=== PATIENT | female | born 1970 | race Caucasian/White ===

== ENCOUNTER 2018-07-22 12:44 | Outpatient (CLI) | payer MEDICAID, SELFPAY ==
--- NOTE | 2018-07-22 12:48 | DI.RAD_ITS ---
SYMPTOM/DIAGNOSIS: BACK KPAIN M54.16 LUMBOSACRAL SPINE: 07/22 Five views were obtained. There is narrowing of the intervertebral disc space at L4-5 with end plate and facet hypertrophic changes also noted at this level. Otherwise, the intervertebral disc spaces are well maintained. Slight hypertrophic degenerative changes noted in facet joints at L5-S1 and L3- 4. CONCLUSION: DJD and disc degeneration at L4-5. Question prior L4-5 laminectomy.
--- NOTE | 2018-07-22 12:48 | DI.RAD_ITS ---
SYMPTOM/DIAGNOSIS: NECK PAIN, M54.2 CERVICAL SPINE: 07/22 The bony structures are normally mineralized. Seven cervical vertebral bodies are clearly demonstrated and appear intact. The disc spaces are well maintained. The posterior elements, neural canal, neuroforamina, facet joints, odontoid and prevertebral soft tissues appear normal. CONCLUSION: Normal cervical spine.
[2018-07-22 14:01] LABS: Hemoglobin A1C 6.7 % (4.5-6.2)
[2018-07-22 14:32] LABS: Anion Gap 11.7 mmol/L (3-11); BUN 17 mg/dL (7-18); CO2 24.3 mmol/L (21.0-32.0); CREATININE 0.74 mg/dL (0.55-1.02); Calcium 8.6 mg/dL (8.5-10.1); Chloride 102 mmol/L (98-107); Cholesterol 196 mg/dL (50-200); Glucose 169 mg/dL (70-100); HDL Cholesterol 71 mg/dL (40-60); LDL CHOLESTEROL 114 mg/dL (<100); Potassium 3.4 mmol/L (3.5-5.1); Sodium 138 mmol/L (136-145); Triglyceride 115 mg/dL (30-150)
== END 2018-07-22 13:04 ==
PROVIDERS: PCP Family Medicine; Visit Provider Family Medicine
DX: M54.2 Cervicalgia (principal); M54.16 Radiculopathy, lumbar region; M51.16 Intervertebral disc disorders with radiculopathy, lumbar region; E11.9 Type 2 diabetes mellitus without complications
CPT/HCPCS: 36415; 80048; 80061; 83721; 72050; 72110; 83036

== ENCOUNTER 2018-10-23 00:08 | Outpatient (CLI) | payer MEDICAID, SELFPAY ==
--- NOTE | 2018-10-23 14:30 | DI.MRI_ITS ---
SYMPTOMS/DIAGNOSIS: BACK PAIN, LUMBAR RADICULOPATHY, M54.16 MRI OF THE LUMBAR SPINE: Comparison is made with plain films dated July,. T1, T2 and STIR sagittal and T1 and T2 axial sequences were performed. Laminectomy defects are seen at L4 and L5. The T10-11 through L2-3 discs appear intact. At L3-4, there is mild concentric disc bulging and a small focal central disc protrusion. There is some impression on the anterior thecal sac. There is overall mild central canal stenosis. No neural foraminal narrowing is seen. At L4-5, there is marked loss of disc height. There are circumferentially projecting osteophytes. There is a small left paracentral disc protrusion, in the same location as on the previous exam of 2007. This appears somewhat less prominent. There is mild to moderate left neural foraminal narrowing. There is lateral recess narrowing. The L5-S1 disc appears intact. There are mild facet degenerative changes at L5- S1 causing right neural foraminal narrowing. IMPRESSION: 1. Central disc protrusion at L3-4 causing mild central canal stenosis. The findings are not significantly changed from 2008. 2. Prior surgery at the L4-5 level. There is a left paracentral disc protrusion versus scarring, which appears less prominent when compared with the previous exam.
== END 2018-10-23 00:28 ==
PROVIDERS: PCP Family Medicine; Visit Provider Family Medicine
DX: M54.16 Radiculopathy, lumbar region (principal); M51.16 Intervertebral disc disorders with radiculopathy, lumbar region; M48.061 Spinal stenosis, lumbar region without neurogenic claudication
CPT/HCPCS: 72148

== ENCOUNTER 2019-01-03 08:37 | Outpatient (CLI) | payer MEDICAID, SELFPAY ==
[2019-01-03 14:56] LABS: COMMENT (LAB VIEW ONLY) 132.94 mg/dL; Microalb ug/mg Crea 6.6 ug/mg Cr
[2019-01-03 15:17] LABS: Anion Gap 12.4 mmol/L (3-11); BUN 11 mg/dL (7-18); CO2 22.6 mmol/L (21.0-32.0); Chloride 103 mmol/L (98-107); Cholesterol 170 mg/dL (50-200); Glucose 179 mg/dL (70-100); HDL Cholesterol 57 mg/dL (40-60); LDL CHOLESTEROL 97 mg/dL (<100); Potassium 3.7 mmol/L (3.5-5.1); Sodium 138 mmol/L (136-145); Triglyceride 122 mg/dL (30-150)
== END 2019-01-03 08:57 ==
PROVIDERS: PCP Family Medicine; Visit Provider Family Medicine
DX: E11.9 Type 2 diabetes mellitus without complications (principal); E78.5 Hyperlipidemia, unspecified
CPT/HCPCS: 36415; 80048; 80061; 83721; 82043; 82570; 83036

== ENCOUNTER 2019-02-19 11:55 | Outpatient (REF) | payer MEDICAID, SELFPAY ==
--- NOTE | 2019-02-19 12:15 | PAPFT_PTH ---
PATIENT: Cristina Guajardo LOC: [facility] U#:[id number] AGE/SX: 48/F ROOM: RE02/19/[address]: Laura Vaca MD : 1970 BED: DIS: 02/19/2019 SPEC #: [id number] RECD: 02/20/19 12:59 STATUS: MIGDALIA RELaura #: [id number] DANIEL: 02/19/19 12:[address]: Laura Vaca DEPT: [facility] Cytology RECD BY: Katharine Villanueva Tissues: 1 - CX/ENDOCX FOR PAP SMEARS Procedures: PAP THIN PREP/UVM Screening HPV DNA PROBE Comments: [id number]
== END 2019-02-19 12:15 ==
LOC: LBN 11:55
PROVIDERS: PCP Family Medicine; Visit Provider Family Medicine
DX: Z12.4 Encounter for screening for malignant neoplasm of cervix (principal); Z11.51 Encounter for screening for human papillomavirus (HPV)
CPT/HCPCS: 88142; 87624

== ENCOUNTER 2019-05-07 11:54 | Outpatient (CLI) | payer MEDICAID, SELFPAY ==
[2019-05-07 12:36] LABS: Abs Immature Grans 0.03 k/cumm (0.0-0.09); Absolute Eosinophil Count 0.11 k/cumm (0.0-0.7); Absolute Lymphocyte Count 2.38 k/cumm (1.2-3.4); Absolute Monocyte Count 0.62 k/cumm (0.11-0.7); Absolute Neutrophil Count 8.53 k/cumm (1.2-6.7); Basophils % 0.3; Eosinophils % 0.9; HCT 39.8 % (36.0-46.0); HGB 13.8 g/dL (12.0-15.5); Immature Grans % 0.3; Lymphocytes % 20.3; Mean Corp. HGB Concentration 34.7 g/dL (32.0-36.0); Mean Corpuscular Hemoglobin 31.8 pg (27.0-33.0); Mean Corpuscular Volume 91.7 fL (80-95); Mean Platelet Volume 9.8 fL (8.0-11.0); Monocytes % 5.3; Neutrophils % 72.9; Platelet Count 266 x1000/uL (130-400); RBC 4.34 m/cumm (4.00-5.20); RBC Distribution Width 12.5 % (11.7-14.6)
[2019-05-07 12:43] LABS: Absolute Basophil Count 0.04 k/cumm (0.0-0.2)
[2019-05-07 13:02] LABS: ALT 26 U/L (12-78); AST 9 U/L (15-37); Albumin 3.9 g/dL (3.4-5.0); Alkaline Phosphatase 74 U/L (46-116); Anion Gap 13.2 mmol/L (3-11); BUN 15 mg/dL (7-18); Bilirubin, Total 0.6 mg/dL (0.2-1.0); CO2 23.8 mmol/L (21.0-32.0); CREATININE 0.69 mg/dL (0.55-1.02); Calcium 9.6 mg/dL (8.5-10.1); Chloride 102 mmol/L (98-107); Glucose 163 mg/dL (70-100); Potassium 3.7 mmol/L (3.5-5.1); Sodium 139 mmol/L (136-145)
== END 2019-05-07 12:14 ==
PROVIDERS: PCP Family Medicine; Visit Provider Family Medicine
DX: R10.9 Unspecified abdominal pain (principal)
CPT/HCPCS: 36415; 80053; 85025

== ENCOUNTER 2019-05-13 00:33 | Outpatient (CLI) | payer MEDICAID, SELFPAY ==
--- NOTE | 2019-05-13 08:33 | DI.US_ITS ---
SYMPTOMS/DIAGNOSIS: ABDOMINAL PAIN, R10.9 ABDOMINAL ULTRASOUND: Routine examination was performed. The aorta is unremarkable, as is the inferior vena cava. The liver measures 19 cm in length. No hepatic mass is seen. The gallbladder is unremarkable. The common duct is within normal limits at 0.3 cm. The pancreas, kidneys and spleen have a normal appearance. The anterior abdominal wall was evaluated in the area of palpable concern. No evidence of an anterior abdominal wall hernia is present. IMPRESSION: Unremarkable abdominal ultrasound.
== END 2019-05-13 00:53 ==
PROVIDERS: PCP Family Medicine; Visit Provider Family Medicine
DX: R10.9 Unspecified abdominal pain (principal)
CPT/HCPCS: 76700

== ENCOUNTER 2019-07-14 19:20 | Outpatient (REF) | payer MEDICAID, SELFPAY | END 2019-07-14 19:40 | LOC: LBN 19:20 | PROVIDERS: PCP Family Medicine; Visit Provider Family Medicine | DX: N39.0 Urinary tract infection, site not specified (principal); E11.9 Type 2 diabetes mellitus without complications | CPT/HCPCS: 87077; 87086; 87186 ==

== ENCOUNTER 2019-12-15 09:17 | Outpatient (CLI) | payer MEDICAID, SELFPAY ==
[2019-12-15 10:24] LABS: ALT 20 U/L (14-59); AST 7 U/L (15-37); Albumin 3.7 g/dL (3.4-5.0); Alkaline Phosphatase 61 U/L (46-116); Anion Gap 8.8 mmol/L (3-11); BUN 13 mg/dL (7-18); Bilirubin, Total 0.4 mg/dL (0.2-1.0); CO2 27.2 mmol/L (21.0-32.0); CREATININE 0.51 mg/dL (0.55-1.02); Calculated LDL 97 mg/dL (<100); Chloride 105 mmol/L (98-107); Cholesterol 166 mg/dL (<200); Glucose 166 mg/dL (74-106); HDL Cholesterol 55 mg/dL (40-60); Potassium 4.6 mmol/L (3.5-5.1); Sodium 141 mmol/L (136-145); Total Protein 6.7 g/dL (6.4-8.2); Triglyceride 70 mg/dL (<150)
== END 2019-12-15 09:37 ==
PROVIDERS: PCP Family Medicine; Visit Provider Family Medicine
DX: E11.9 Type 2 diabetes mellitus without complications (principal)
CPT/HCPCS: 36415; 80053; 80061; 83036

== ENCOUNTER 2020-01-24 03:40 | Emergency (ER) | payer MEDICAID, SELFPAY ==
[2020-01-24 03:45] VITALS: BP 166/85; PULSE 121; RESP 16; TEMP 36.8; O2SAT 99
--- NOTE | 2020-01-24 03:45 | DI.CT_ITS ---
EXAM: CT RENAL COLIC WO CLINICAL HISTORY: right flank pain. TECHNIQUE: Imaging Protocol: Axial computed tomography images with coronal and sagittal reformatted images were created and reviewed. COMPARISON: No exams were available for comparison FINDINGS: ABDOMEN: Lung Bases: Normal where visualized. Liver: Normal density. No measurable mass. Gallbladder and biliary tract: No radiodense calculus or biliary ductal dilation. Pancreas: Normal density, no abnormal calcifications or inflammatory process. Spleen: Normal. Kidneys: Normal size, contour and axis. There is a 4 mm stone in the proximal right ureter causing mi ld to moderate hydronephrosis. No masses seen. There is no left nephrolithiasis or hydronephrosis. Adrenal glands: No masses seen. Lymph nodes: Within normal limits. Abdominal Aorta: Abdominal portion non-dilated. Minimal atherosclerosis. PELVIS: Bladder: Symmetric distention, no gross wall thickening. Bowel: Scattered diverticula in the colon. No evidence of acute diverticulitis. No evidence of chloe l obstruction or inflammation. No evidence of acute appendicitis. Peritoneal cavity: No ascites, collection or mesenteric inflammatory response. Reproductive organs: Note is made of a 3 cm left ovarian cyst. Bones: The patient is status post laminectomy at L4 and L5. Degenerative changes are seen in the spi ne. Soft Tissues: Within normal limits. IMPRESSION: 1. 4 mm proximal right ureteral stone causing mild to moderate hydronephrosis. 2. 3 cm left ovarian cyst. DATA REPOSITORY: All CT scans at this facility are submitted to the National Radiology Data Registry (NRDR) Dose Index Registry (DIR) with the [employer] (A[employer]). RADIATION OPTIMIZATION: All CT scans at this facility use at least one of these dose optimization te chniques: automated exposure control; mA and/or kV adjustment per patient size (includes targeted exa ms where dose is matched to clinical indication); or iterative reconstruction.
--- NOTE | 2020-01-24 03:49 | W.ED.GENAD ---
Discharge Plan Disposition Patient Disposition: HOME Condition: Stable Discharge Details Chief Complaint: Nk/Back Pain Clinical Impression: Right ureteral stone Primary Care Provider: Shahzad Norwood ED Provider: Florentin Powell Home Meds and New Rx's Prescriptions: New ondansetron 4 mg tablet,disintegrating 4 mg PO Q8H PRN (Reason: nausea and vomiting) Qty: 30 RF: 0 tamsulosin [Flomax] 0.4 mg capsule 0.4 mg PO DAILY Qty: 14 RF: 0 cephalexin 500 mg tablet 500 mg PO QID Qty: 28 RF: 0 Continued (DME) blood-glucose meter 1 EACH misc 1 ea Miscellaneous DAILY Qty: 1 RF: 0 (DME) lancets 1 EACH misc 1 ea Miscellaneous Fasting and 1-hr PP Qty: 150 RF: 4 Cosentyx (2 Syringes) 150 MG/1 ML syringe 300 mg SQ Monthly RF: 0 lansoprazole [Prevacid] 30 mg capsule,delayed release(DR/EC) 30 mg PO DAILY Qty: 90 RF: 3 liraglutide 0.6 mg/0.1 mL (18 mg/3 mL) pen injector 1.8 mg SC DAILY Qty: 18 RF: 3 (DME) pen needle, diabetic [BD Ultra-Fine Layne Pen Needle] 32 gauge x 5/32 needle See Dose Instructions .ROUTE .MEDSUPPLY Qty: 100 RF: 4 pravastatin 40 mg tablet 40 mg PO DAILY Qty: 90 RF: 4 (DME) blood sugar diagnostic Strip 1 ea Miscellaneous Fasting and 1-hr PP Qty: 360 RF: 3 metformin 1,000 mg tablet 1,000 mg PO BID Qty: 180 RF: 4 calcium carbonate-vitamin D3 [Calcium 500 With D] 500 mg(1,250mg) -400 unit Tablet 1 tab PO DAILY RF: 0 cholecalciferol (vitamin D3) [Vitamin D3] 25 mcg (1,000 unit) Capsule 1,000 unit PO DAILY RF: 0 Discharge Instructions Instructions: Kidney Stones (ED) Additional Instructions: you can take 1000mg tylenol and 600mg ibuprofen every 6 hours as needed for pain follow up with urology, you should be contacted with an appointment take the flomax once daily for 14 days or until you pass the stone if you develop fevers, severe worsening pain or persistent vomit return to the emergency department Referrals: Umer Karimi MD [ [facility] STAFF PHYSICIAN] - Medical Decision Making 49 yo female with hx of dm, hld, who comes in with lower back pain. She has had some mild discomfort in the right lower back intermittently over the past week but tonight woke up from sleep with significant pain in right lower back. Denies vomit but has had nausea, no abdominal pain and no fevers. Denies any dysuria but states her urine has appeared dark this week. No fevers or cough. She has no cva tenderness, no abdominal tenderness. No saddle anessthesia, normal gait and no weakness. Suspect pyelo vs kidney stone or possible muscle spasm, will obtain lab work and ct to eval. No findings to suggest entities such as cauda equina, sea, dissection, appendicitis or other surgical pathology labs show no significant abnormalities, UA shows some bacteria, negative leukocytes and nitrites. Doubt septic stone, will treat as possible concomitant uti with her ct confirmed kidney stone. She feels significantly better and is stable for d/c tolerating PO. She declines opiates prescriptions. Will d/c and have her f/u with urology chloe and return precautions given Differential Diagnosis Differential Diagnosis: kidney stone, pyelo, muscle spasm Medical Records Medical records reviewed: Yes I reviewed the patient's medical records. Imaging Data Radiologic Study: Attestation: I personally reviewed and interpreted this imaging study as follows: Imaging: CT Scan Radiologist's impression: IMPRESSION: 1. 4 mm calculus right proximal ureter with mild right hydroureteronephrosis. 2. Right perinephric stranding likely related to obstruction and caliceal rupture but with clinical exclusion of infection recommended. 3. 3 cm left ovarian cyst. Lab Data Lab results reviewed: Yes I reviewed the patient's lab results. HPI General Mode of arrival: ambulatory. Date/Time Provider Initiated Documentation: 01/24/20 03:42. Limitations to Documentation: no limitations. Information obtained by: patient. History of Present Illness 49 year old F presents to the emergency department with the chief complaint of back pain, described as moderate, No relieving factors improve symptom(s), No exacerbating factors reported . Patient notes other (nausea). Patient did receive the following treatments prior to arrival, none Related Data Home Medications Medication Instructions Recorded Confirmed blood-glucose meter #1 ea 11/15/17 07/14/19 lancets #150 ea 11/15/17 07/14/19 Cosentyx (2 Syringes) 300 mg SQ Monthly syringe 02/14/18 07/14/19 lansoprazole 30 mg capsule,delayed 30 mg PO DAILY #90 cap 07/15/19 release liraglutide 0.6 mg/0.1 mL (18 mg/3 1.8 mg SC DAILY #18 ml 08/18/19 mL) subcutaneous pen injector pen needle, diabetic 32 gauge x #100 each 08/18/19 pravastatin 40 mg tablet 40 mg PO DAILY #90 tab 08/18/19 blood sugar diagnostic #360 strip 08/21/19 metformin 1,000 mg tablet 1,000 mg PO BID #180 tab-cap 11/17/19 calcium carbonate-vitamin D3 1 tab PO DAILY 01/24/20 01/24/20 [Calcium 500 With D] cephalexin 500 mg PO QID #28 tab 01/24/20 cholecalciferol (vitamin D3) 1,000 unit PO DAILY 01/24/20 01/24/20 [Vitamin D3] ondansetron 4 mg PO Q8H PRN #30 tab 01/24/20 tamsulosin [Flomax] 0.4 mg PO DAILY #14 cap 01/24/20 Previous Rx's Medication Instructions Recorded blood-glucose meter #1 ea 11/15/17 lancets #150 ea 11/15/17 lansoprazole 30 mg capsule,delayed 30 mg PO DAILY #90 cap 07/15/19 release liraglutide 0.6 mg/0.1 mL (18 mg/3 1.8 mg SC DAILY #18 ml 08/18/19 mL) subcutaneous pen injector pen needle, diabetic 32 gauge x #100 each 08/18/19 pravastatin 40 mg tablet 40 mg PO DAILY #90 tab 08/18/19 blood sugar diagnostic #360 strip 08/21/19 metformin 1,000 mg tablet 1,000 mg PO BID #180 tab-cap 11/17/19 cephalexin 500 mg PO QID #28 tab 01/24/20 ondansetron 4 mg PO Q8H PRN #30 tab 01/24/20 tamsulosin [Flomax] 0.4 mg PO DAILY #14 cap 01/24/20 Allergies Allergy/AdvReac Type Severity Reaction Status Date / Time empagliflozin AdvReac Severe Verified 01/24/20 03:51 [From Jardiance] Review of Systems All systems reviewed & are unremarkable except as noted in HPI and below Constitutional Constitutional: Denies chills, Denies fever(s) and Denies weakness Cardiovascular Cardiovascular: Denies chest pain and Denies dyspnea Respiratory Respiratory: Denies cough and Denies dyspnea Gastrointestinal Gastrointestinal: Denies abdominal pain and Denies vomiting Neurologic Neurologic: Denies weakness [facility] Medical History (Updated 01/24/20 @ 04:37 by Florentin Powell MD) Diabetes (Chronic) Dysmenorrhea (Acute) Psoriasis (Chronic) Upper abdominal pain (Acute) Surgical History Recurrent major depression in partial remission 11/14/17 UTERINE ([facility]) Spinal discectomy (~07/1998) [facility] [place] [facility] [place] Family History Mother Diabetes Essential hypertension Hyperlipidemia Stroke Grandfather Neoplasm Grandmother No problems noted. Father No problems noted. Son No problems noted. Brother No problems noted. Sister No problems noted. Sister No problems noted. Sister No problems noted. 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 Pets and animals: Yes Pets and animals: dog(s) and bird(s) Duration: 45-60 minutes/day Frequency: daily Special melissa needs: No Seatbelt use: sometimes Do you feel safe at home: Yes Do you feel safe in your relationship?: Yes Exam Const General: no acute distress Orientation: alert [facility] Head: normal to inspection Ears: external ears normal General nose exam: external nose normal Mouth: moist mucous membranes Eyes General: appearance normal, both eyes and all related structures Neck Neck: normal visual inspection Resp Effort & Inspection: normal respiratory effort and able to speak in complete sentences Cardio Rate: regular rate GI Palpation: soft Back/Spine/Pelvis Back: no CVA tenderness Skin General skin exam: no rashes or lesions noted Neuro General: patient alert and patient oriented x3 Extrem General: normal to inspection Psych Mental Status: mental status grossly normal
[2020-01-24] MEDS: Ketorolac 15 MG/ML VIAL IM (04:05)
[2020-01-24] MEDS: Ondansetron O.D.T. 4 MG TABEF PO (04:05)
[2020-01-24 04:18] LABS: Bilirubin Negative (Negative); Blood Large (Negative); Clarity Cloudy (Clear); Glucose 250 mg/dL (Negative); Ketones 15 mg/dL (Negative); Leukocyte Esterase Negative (Negative); Nitrite Negative (Negative); Specific Gravity >= 1.030 (1.005-1.025); Urobilinogen 0.2 EU/dL (Up TO 0.2); pH 5.5 (5-8)
--- NOTE | 2020-01-24 04:34 | DI.VRAD_ITS ---
PROCEDURE INFORMATION: Exam: CT Abdomen And Pelvis Without Contrast Exam date and time: 01/24/2020 4:18 AM Age: 49 years old Clinical indication: Abdominal pain; Flank; Right TECHNIQUE: Imaging protocol: Computed tomography of the abdomen and pelvis without contrast. Radiation optimization: All CT scans at this facility use at least one of these dose optimization techniques: automated exposure control; mA and/or kV adjustment per patient size (includes targeted exams where dose is matched to clinical indication); or iterative reconstruction. COMPARISON: US PELVIS TRANSVAG 04/30/2017 1:36 PM FINDINGS: Liver: Hepatic steatosis. Gallbladder and bile ducts: Normal. No calcified stones. No ductal dilation. Pancreas: Normal. No ductal dilation. Spleen: Normal. No splenomegaly. Adrenals: Normal. No mass. Kidneys and ureters: 4 mm calculus right proximal ureter with mild right hydroureteronephrosis. Right perinephric stranding likely related to obstruction and caliceal rupture but with clinical exclusion of infection recommended. Stomach and bowel: Scattered colonic diverticula. Appendix: No evidence of appendicitis. Intraperitoneal space: Unremarkable. No free air. No significant fluid collection. Vasculature: Unremarkable. No abdominal aortic aneurysm. Lymph nodes: Unremarkable. No enlarged lymph nodes. Bladder: Unremarkable as visualized. Reproductive: 3 cm left ovarian cyst. Bones/joints: Unremarkable. No acute fracture. Soft tissues: Unremarkable. IMPRESSION: 1. 4 mm calculus right proximal ureter with mild right hydroureteronephrosis. 2. Right perinephric stranding likely related to obstruction and caliceal rupture but with clinical exclusion of infection recommended. 3. 3 cm left ovarian cyst. Dictated and Authenticated by: Florentin Galindo MD. Ordering:JOSELIN Lerma MD
[2020-01-24 04:37] LABS: Abs Immature Grans 0.03 k/cumm (0.0-0.09); Absolute Basophil Count 0.03 k/cumm (0.0-0.2); Absolute Lymphocyte Count 1.64 k/cumm (1.2-3.4); Absolute Monocyte Count 1.08 k/cumm (0.11-0.7); Absolute Neutrophil Count 11.29 k/cumm (1.2-6.7); Basophils % 0.2; Eosinophils % 1.3; HCT 37.9 % (36.0-46.0); HGB 13.3 g/dL (12.0-15.5); Immature Grans % 0.2 %; Lymphocytes % 11.5; Mean Corp. HGB Concentration 35.1 g/dL (32.0-36.0); Mean Corpuscular Volume 91.1 fL (80-95); Mean Platelet Volume 9.5 fL (8.0-11.0); Monocytes % 7.6; Neutrophils % 79.2; Platelet Count 296 x1000/uL (130-400); RBC 4.16 m/cumm (4.00-5.20); RBC Distribution Width 12.9 % (11.7-14.6); White Blood Cell Count 14.25 k/cumm (4.4-10.8)
[2020-01-24 04:38] LABS: Bacteria Moderate HPF (Negative); C & S Indicated? Yes; Casts Negative LPF (Negative); Crystals Negative HPF (Negative); Epithelial Cells Moderate HPF (Negative); Mucus Negative (Negative); RBC >50 HPF (0-2)
[2020-01-24 04:42] LABS: Absolute Eosinophil Count 0.19 k/cumm (0.0-0.7)
[2020-01-24] MEDS: Cephalexin 500 MG CAP PO (04:47)
[2020-01-24 04:56] LABS: ALT 40 U/L (14-59); AST 17 U/L (15-37); Albumin 3.8 g/dL (3.4-5.0); Alkaline Phosphatase 66 U/L (46-116); Anion Gap 13.7 mmol/L (3-11); BUN 22 mg/dL (7-18); Bilirubin, Total 0.5 mg/dL (0.2-1.0); CO2 21.3 mmol/L (21.0-32.0); CREATININE 0.83 mg/dL (0.55-1.02); Calcium 8.9 mg/dL (8.5-10.1); Chloride 102 mmol/L (98-107); Glucose 222 mg/dL (74-106); Lipase 145 U/L (73-393); Potassium 3.4 mmol/L (3.5-5.1); Sodium 137 mmol/L (136-145); Total Protein 7.2 g/dL (6.4-8.2)
[2020-01-24 05:06] VITALS: BP 133/89; PULSE 85; RESP 16; O2SAT 98
--- NOTE | 2020-01-25 21:49 | NUR.NOTE ---
REFERRAL FAXED TO UROLOGY FOR FOLLOW UP CARE Nursing Note:
== END 2020-01-24 05:25 | disposition home or self-care (01) ==
PROVIDERS: Emergency Provider Emergency Medicine; PCP Family Medicine
DX: N20.1 Calculus of ureter (principal); E11.9 Type 2 diabetes mellitus without complications; Z79.84 Long term (current) use of oral hypoglycemic drugs
CPT/HCPCS: 80053; 81025; 83690; 96372; 99284; 74176; 81003; 81015; 85025; 87086; J1885

== ENCOUNTER 2020-02-27 01:49 | Outpatient (CLI) | payer MEDICAID, SELFPAY ==
--- NOTE | 2020-02-27 07:00 | DI.US_ITS ---
EXAM: US RENAL CLINICAL HISTORY: continued right flank pain. monitoring hydronephroSIS, ABD PAIN. TECHNIQUE: Lyon scale, color and spectral Doppler were used. COMPARISON: CT CT RENAL COLIC WO from 01/24/2020 FINDINGS: Renal size in cm: Right: 13.0 cm left: 12.1 cm Echogenicity: Normal Hydronephrosis: Mild right hydronephrosis, improved when compared with the previous exam. Cyst or mass: No Nephrolithiasis: No Bladder:Normal both ureteral jets were visualized. A mobile echogenic focus is noted in the bladder measuring 3 millimeters. Prevoid vol:49 cc Postvoid vol: 0 cc IMPRESSION: 3 millimeter bladder calculus. Mild right hydronephrosis, improved from the previous exam. DATA REPOSITORY:
== END 2020-02-27 02:09 ==
PROVIDERS: PCP Family Medicine; Visit Provider Nurse Practitioner Gerontology
DX: R10.31 Right lower quadrant pain (principal); N21.0 Calculus in bladder; N13.30 Unspecified hydronephrosis
CPT/HCPCS: 76770

== ENCOUNTER 2020-04-30 07:40 | Outpatient (CLI) | payer MEDICAID, SELFPAY ==
[2020-05-06 20:34] LABS: SARS-CoV-2 RNA Undetected (Undetected); SARS-CoV-2 Specimen Source Nasopharynx
== END 2020-04-30 08:00 ==
PROVIDERS: PCP Family Medicine; Visit Provider Family Medicine
DX: Z11.59 Encounter for screening for other viral diseases (principal)
CPT/HCPCS: U0003

== ENCOUNTER 2020-05-10 01:35 | Outpatient (CLI) | payer MEDICAID, SELFPAY ==
--- NOTE | 2020-05-10 10:15 | DI.US_ITS ---
EXAM: US RENAL CLINICAL HISTORY: Monitoring right hydro and cont'd flank pain, N13.30, R10.9. TECHNIQUE: Lyon scale, color and spectral Doppler were used. COMPARISON: US US RENAL from 02/27/2020 FINDINGS: Renal size in cm: Right: 11.8 left: 11.5 Echogenicity: Normal. Hydronephrosis: Mild hydronephrosis of the right kidney which has improved compared to the prior exam ination. Cyst or mass: No. Nephrolithiasis: No. Other findings: None. Bladder:Normal. The previously noted echogenic focus in the bladder is not visualized. Ureteral jets: Right: Visualized and unremarkable. Left: Visualized and unremarkable. Prevoid vol:42 cc Postvoid vol:0 cc IMPRESSION: Improved but persistent mild hydronephrosis of the right kidney. DATA REPOSITORY:
== END 2020-05-10 01:55 ==
PROVIDERS: PCP Family Medicine; Visit Provider Nurse Practitioner Gerontology
DX: N13.30 Unspecified hydronephrosis (principal); R10.9 Unspecified abdominal pain
CPT/HCPCS: 76770

== ENCOUNTER 2020-05-12 11:46 | Outpatient (REF) | payer MEDICAID, SELFPAY | END 2020-05-12 12:06 | LOC: LBN 11:46 | PROVIDERS: PCP Family Medicine; Visit Provider Nurse Practitioner Gerontology | DX: R10.9 Unspecified abdominal pain (principal); R30.0 Dysuria | CPT/HCPCS: 87077; 87086; 87186 ==

== ENCOUNTER 2020-05-17 21:53 | Outpatient (REF) | payer MEDICAID, SELFPAY ==
[2020-05-17 21:41] LABS: ALT 28 U/L (14-59); AST 15 U/L (15-37); Albumin 3.6 g/dL (3.4-5.0); Alkaline Phosphatase 64 U/L (46-116); Anion Gap 12.8 mmol/L (3-11); BUN 11 mg/dL (7-18); Bilirubin, Total 0.2 mg/dL (0.2-1.0); CO2 22.2 mmol/L (21.0-32.0); CREATININE 0.67 mg/dL (0.55-1.02); Calcium 8.5 mg/dL (8.5-10.1); Chloride 105 mmol/L (98-107); Glucose 220 mg/dL (74-106); Potassium 3.1 mmol/L (3.5-5.1); Sodium 140 mmol/L (136-145); Total Protein 6.6 g/dL (6.4-8.2)
[2020-05-17 21:44] LABS: HCT 38.7 % (36.0-46.0); HGB 13.1 g/dL (12.0-15.5); Mean Corp. HGB Concentration 33.9 g/dL (32.0-36.0); Mean Corpuscular Hemoglobin 31.2 pg (27.0-33.0); Mean Corpuscular Volume 92.1 fL (80-95); Mean Platelet Volume 11.2 fL (8.0-11.0); Platelet Count 316 x1000/uL (130-400); RBC Distribution Width 13.3 % (11.7-14.6); White Blood Cell Count 11.37 k/cumm (4.4-10.8)
[2020-05-17 22:40] LABS: Hemoglobin A1C 7.4 % (3.8-5.6)
== END 2020-05-17 22:13 ==
LOC: LBN 21:53
PROVIDERS: PCP Family Medicine; Visit Provider Family Medicine
DX: E11.9 Type 2 diabetes mellitus without complications (principal)
CPT/HCPCS: 80053; 85027; 83036

== ENCOUNTER 2020-05-28 08:21 | Outpatient (CLI) | payer MEDICAID, SELFPAY ==
[2020-05-29 18:08] LABS: COVID-19 RT-PCR Result NEGATIVE (Negative)
== END 2020-05-28 08:41 ==
PROVIDERS: PCP Family Medicine; Visit Provider Nurse Practitioner Gerontology
DX: Z11.59 Encounter for screening for other viral diseases (principal)
CPT/HCPCS: U0003

== ENCOUNTER 2020-05-31 08:11 | Day surgery (SDC) | payer MEDICAID, SELFPAY ==
[2020-05-31 08:15] VITALS: BP 141/91; PULSE 102; RESP 16; TEMP 36.5; O2SAT 99
--- NOTE | 2020-05-31 08:34 | W.PM.HP.N ---
Assessment and Plan Assessment and plan (1) Right distal ureteral calculus: Status: Acute Assessment and plan: We will move forward with a cystoscopy, retrograde pyelogram and possible ureteroscopy and stone manipulation History of Present Illness History of Present Illness Chief Complaint: Right ureteral stone Narrative: This is a 49-year-old woman who presented to the emergency room about 3 months ago with back pain. She underwent noncontrast CT scan which showed a proximal right ureteral stone. Since then, she has had intermittent right flank pain. She has not passed her stone as far she knows. She has not seen any gross hematuria. She does have some urgency and dysuria at times. She has had follow-up renal ultrasounds. Both ultrasounds have shown persistent mild hydronephrosis. An ultrasound from about a month ago identified a calcification in the bladder region. Her most recent ultrasound showed no evidence of stone. She is not having any fevers or chills. She has had some nausea but no vomiting. She has never had a stone before. She has no history of gout or hyperparathyroid disease. Review of Systems Narrative: No fevers or chills No vision change or dysphasia No thyroid dysfunction. Hx diabetes which is been difficult to control lately No shortness of breath, cough or hemoptysis No chest pain or palpitations No vomiting, hepatitis, ulcers, jaundice, diarrhea or constipation No seizures, strokes or peripheral neuropathy No bleeding disorders or anemia No gout. Chronic back pain. ON LICENSE OF [facility] Medical History (Updated 05/31/20 @ 08:34 by Umer Karimi MD) Diabetes (Chronic) Dysmenorrhea (Acute) Psoriasis (Chronic) Right distal ureteral calculus (Acute) Tachycardia (Acute) Upper abdominal pain (Acute) Surgical History (Updated 05/31/20 @ 08:22 by Malissa Moreira) S/P endometrial ablation (Acute) Spinal discectomy (~07/1998) [facility] [place] Family History Mother , age 78 Diabetes Essential hypertension Hyperlipidemia Stroke Heart disease Maternal Grandfather Cancer Grandmother No problems noted. Father No problems noted. Son No problems noted. Brother No problems noted. Sister No problems noted. Sister No problems noted. Sister No problems noted. 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 Pets and animals: No Sexually active: Yes Do you think of yourself as: straight/heterosexual Current gender identity: female What is your relationship status?: How often do you talk on the phone with friends or family?: three or more times per week How often do you get together with friends or relatives?: decline to answer How often do you attend shinto or rastafari services?: decline to answer Do you belong to any clubs or organized social groups?: no Panel score (0-1 are the most socially isolated patients): 2 What type of physical activity do you participate in: 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: daily Elke/Zoroastrianism: None Special elke needs: No Seatbelt use: always Helmet use: No Drive intox or ride w/intox bulk driver: No Do you feel safe at home: Yes Do you feel safe in your relationship?: Yes Meds Home Medications and Allergies Home Medications Medication Instructions Recorded Confirmed Type blood-glucose meter #1 ea 11/15/17 05/26/20 Rx lancets #150 ea 11/15/17 05/26/20 Rx Cosentyx (2 Syringes) 300 mg SQ Monthly syringe 02/14/18 05/31/20 History lansoprazole 30 mg capsule,delayed 30 mg PO DAILY #90 cap 07/15/19 05/27/20 Rx release liraglutide 0.6 mg/0.1 mL (18 mg/3 1.8 mg SC DAILY #18 ml 08/18/19 05/31/20 Rx mL) subcutaneous pen injector pen needle, diabetic 32 gauge x #100 each 08/18/19 05/26/20 Rx pravastatin 40 mg tablet 40 mg PO DAILY #90 tab 08/18/19 05/31/20 Rx blood sugar diagnostic #360 strip 08/21/19 05/26/20 Rx metformin 1,000 mg tablet 1,000 mg PO BID #180 tab-cap 11/17/19 05/31/20 Rx calcium carbonate-vitamin D3 1 tab PO DAILY 01/24/20 05/31/20 History [Calcium 500 With D] cholecalciferol (vitamin D3) 1,000 unit PO DAILY 01/24/20 05/31/20 History [Vitamin D3] ondansetron 4 mg PO Q8H PRN #30 tab 01/24/20 05/27/20 Rx potassium chloride 10 mEq 10 meq PO DAILY #20 tab 05/24/20 05/31/20 Rx tablet,extended release sitagliptin 100 mg tablet 100 mg PO DAILY #30 tab 05/24/20 05/27/20 Rx tamsulosin 0.4 mg capsule 0.4 mg PO DAILY #14 cap 05/26/20 05/31/20 Rx Allergies Allergy/AdvReac Type Severity Reaction Status Date / Time empagliflozin AdvReac Severe Verified 05/27/20 12:36 [From Jardiance] Exam Const General: cooperative and no acute distress Neck Neck: supple Resp Effort & Inspection: normal respiratory effort Auscultation: clear to auscultation bilaterally Cardio Rate: regular rate Rhythm: regular rhythm GI Palpation: soft and no masses Neuro General: patient alert, patient awake and patient oriented x3 Results Last Vital Signs Temp 36.5 C 05/31/20 08:15 Pulse 102 H 05/31/20 08:15 Resp 16 05/31/20 08:15 BP 141/91 H 05/31/20 08:15 Pulse Ox 99 05/31/20 08:15 COVID-19 Screening Have you,or household,traveled outside [place] in last 14 days?: No Had IN PERSON contact w/suspected or confirmed C-19 person: No
[2020-05-31] MEDS: Lactated Ringers 1,000 ML 80 ML IV (09:05)
[2020-05-31] MEDS: ceFAZolin 1 GM/50 ML BAG IVPB (09:15)
[2020-05-31] MEDS: Lidocaine 2% Jelly 6 ML SYR (09:32)
[2020-05-31] MEDS: Omnipaque 300 MG/ML 50 ML BTL (09:34)
--- NOTE | 2020-05-31 09:50 | DI.RAD_ITS ---
EXAM: XR RETROGRADE IN OR CLINICAL HISTORY: RIGHT URETERAL CALCULUS TECHNIQUE: 2D and realtime digital imaging was performed. CONTRAST MATERIAL: Refer to procedure report. COMPARISON: No exams were available for comparison FINDINGS: Fluoroscopy was provided for Dr. Karimi during the performance of a retrograde evaluation of the violette l collecting system. Please refer to the procedure report for complete details. Fluoro time: 30.3 seconds IMPRESSION: RADIATION DOSE DELIVERED:
--- NOTE | 2020-05-31 09:56 | W.PM.DSUDISC ---
Discharge Plan Disposition Patient Disposition: HOME Condition: Stable Discharge Details Attending Provider: Umer Karimi Primary Care Provider: Shahzad Norwood Home Meds and New Rx's Prescriptions: No Action tamsulosin [Flomax] 0.4 mg capsule 0.4 mg PO DAILY Qty: 14 RF: 0 (DME) blood-glucose meter 1 EACH misc 1 ea Miscellaneous DAILY Qty: 1 RF: 0 (DME) lancets 1 EACH misc 1 ea Miscellaneous Fasting and 1-hr PP Qty: 150 RF: 4 Cosentyx (2 Syringes) 150 MG/1 ML syringe 300 mg SQ Monthly RF: 0 lansoprazole [Prevacid] 30 mg capsule,delayed release(DR/EC) 30 mg PO DAILY Qty: 90 RF: 3 liraglutide 0.6 mg/0.1 mL (18 mg/3 mL) pen injector 1.8 mg SC DAILY Qty: 18 RF: 3 (DME) pen needle, diabetic [BD Ultra-Fine Layne Pen Needle] 32 gauge x 5/32 needle See Dose Instructions .ROUTE .MEDSUPPLY Qty: 100 RF: 4 pravastatin 40 mg tablet 40 mg PO DAILY Qty: 90 RF: 4 (DME) blood sugar diagnostic Strip 1 ea Miscellaneous Fasting and 1-hr PP Qty: 360 RF: 3 metformin 1,000 mg tablet 1,000 mg PO BID Qty: 180 RF: 4 potassium chloride 10 mEq tablet extended release 10 meq PO DAILY Qty: 20 RF: 0 sitagliptin 100 mg tablet 100 mg PO DAILY Qty: 30 RF: 11 calcium carbonate-vitamin D3 [Calcium 500 With D] 500 mg(1,250mg) -400 unit Tablet 1 tab PO DAILY RF: 0 cholecalciferol (vitamin D3) [Vitamin D3] 25 mcg (1,000 unit) Capsule 1,000 unit PO DAILY RF: 0 ondansetron 4 mg tablet,disintegrating 4 mg PO Q8H PRN (Reason: nausea and vomiting) Qty: 30 RF: 0 Discharge Instructions Additional Instructions: Pt will need nuclear renogram with lasix washout and folllowup appt on same day - my office will need to schedule Activity:: Activity as Tolerated Remove Dressings/Wound Care:: 24 hours Shower/Bathe:: 24 hours Diet:: As Tolerated DS: Diagnosis Discharge Diagnosis (1) Right distal ureteral calculus: Status: Acute
--- NOTE | 2020-05-31 09:59 | ROE_ITS ---
Date of service: 05/31/20 Time of Service: 09:59 Operative Note Operative Note DATE OF PROCEDURE: 05/31/20 PRE-OP DIAGNOSIS: Right ureteral stone Right hydronephrosis (possible UPJ obstruction) PROCEDURE: Cystoscopy, right retrograde pyelogram, right flexible ureteroscopy SURGEON: Umer Karimi ANESTHESIA: ARIELLA ESTIMATED BLOOD LOSS: 0 PATHOLOGY: none sent Patient was transported to: PACU Patient's condition: stable Indications: This is a 49-year-old woman who presented to the emergency room several months ago with right back pain. She was identified as having a right proximal ureteral stone. Since that time, she has not passed her stone as far as she knows. She has had follow-up renal ultrasounds which show persistent mild hydronephrosis. 1 prior ultrasound identified her stone in the bladder. A follow-up ultrasound showed no residual stones. She continues to have symptoms along with the finding of hydronephrosis. She presents for cystoscopy, retrograde pyelogram and ureteroscopy with stone manipulation. Findings: Kidney/renal pelvis dilated Ureter normal No stone in bladder Procedure Description: The patient was brought to the operating room on 05/31/2020. After successful induction of general anesthesia, she was placed in the dorsal lithotomy position. 2% Xylocaine gel was instilled into the urethra. IV antibiotics were given. A 22 Cypriot rigid cystoscope was passed through the urethra into the bladder. The bladder was inspected with a 30 degree lens. Both ureteral orifice ease appeared normal with no edema on either side. No stones were seen within the bladder. No blood was seen coming from either orifice. No papillary or nodular bladder lesions were identified. The 6 Cypriot access catheter was then passed through the cystoscope and maneuvered into the right ureteral orifice. A retrograde film was obtained by injecting Omnipaque through the access catheter under fluoroscopic guidance. The right ureter appeared normal with no filling defects whatsoever. The right renal pelvis appeared dilated but no definite filling defect was identified. Delayed films confirmed the persistent dilation of the renal pelvis with complete washout from the ureter. We then decided to do ureteroscopy to visualize the upper ureter and pelvis. A Glidewire was advanced through the cystoscope and maneuvered into the right ureteral orifice. A dual-lumen catheter was advanced over the wire and a second wire was positioned. We chose 1 of the wires as a working wire and the other is a safety wire. We advanced a ureteral access sheath over the working wire and positioned the tip of the sheath in mid ureter. The flexible ureteroscope was advanced through the lumen of the access sheath and the ureter, pelvis and calyces were all inspected. No filling defects were seen in the upper ureter. The renal pelvis did appear dilated but I found no mucosal abnormalities and no stones. Each of the calyces was inspected and no free-floating stones were identified. The ureteroscope and access sheath were then withdrawn down the remainder of the ureter and again no stones or filling defects were identified. Based on today's examination, I do not see a definite stone. I wonder if the patient might have a congenital ureteropelvic junction obstruction which could account for her symptoms and back pain. I did find a previous pelvic ultrasound during which her kidneys were imaged. A dilated renal pelvis was identified then in the question of obstruction was posed. We will plan on evaluating her with a nuclear renogram with Lasix washout.
[2020-05-31 10:00] VITALS: BP 126/82; PULSE 103; RESP 23; TEMP 36; O2SAT 100
[2020-05-31] MEDS: Ketorolac 15 MG/ML VIAL (10:00)
[2020-05-31 10:05] VITALS: BP 129/89; PULSE 89; RESP 19; TEMP 36; O2SAT 100
[2020-05-31 10:10] VITALS: BP 117/77; PULSE 89; RESP 19; TEMP 36; O2SAT 98
[2020-05-31 10:15] VITALS: BP 107/63; PULSE 90; RESP 12; TEMP 36.4; O2SAT 98
[2020-05-31] MEDS: Phenazopyridine 200 MG TAB PO (10:31)
[2020-05-31 10:50] VITALS: BP 111/77; PULSE 79; RESP 16; TEMP 35.9; O2SAT 99
== END 2020-05-31 11:25 | disposition home or self-care (01) ==
PROVIDERS: PCP Family Medicine; Visit Provider Urology
PROC: (CPT 52351; principal; 2020-05-31 10:00)
DX: N13.2 Hydronephrosis with renal and ureteral calculous obstruction (principal); E11.9 Type 2 diabetes mellitus without complications
CPT/HCPCS: 52351; 81025; NC; 74420; J0690; J1100; J1885; J2001; J2405; Q9967

== ENCOUNTER 2020-06-18 17:51 | Outpatient (REF) | payer MEDICAID, SELFPAY | END 2020-06-18 18:11 | LOC: LBN 17:51 | PROVIDERS: PCP Family Medicine; Visit Provider Urology | DX: N39.0 Urinary tract infection, site not specified (principal) | CPT/HCPCS: 87077; 87086; 87186 ==

== ENCOUNTER 2020-07-02 04:01 | Outpatient (CLI) | payer MEDICAID, SELFPAY ==
--- NOTE | 2020-07-02 09:45 | DI.NM_ITS ---
CLINICAL HISTORY: r/o obstruction (?UPJ) - no stone on ureteroscopy,HYDRONEPHROSIS RT. COMPARISON: CT CT RENAL COLIC WO from 01/24/2020 US US RENAL from 02/27/2020 XR RETROGRADE IN OR from 05/31/2020 EXAMINATION: Dose: 11 mCi Tc-99m MAG3 Images: Immediately for 1 minute followed by dynamic for 45 minutes. 22mg Lasix was administered afte r peak uptake in the renal cortex at approximately 12 min. Postvoid images were also performed. FINDINGS: Time to peak: Right: 10 min (< 5 min normal) Left: 5 min (< 5 min normal) Curve Appearance: Right: T1/2 (Lasix to half-Lasix) 12 min Left: T1/2 (Lasix to half-Lasix) 7 min The flow curves of the renal uptake show mildly diminished activity of the right kidney compared to t he left. There is a mild delay in peak activity to the right kidney. Post Lasix, the time activity curve reveals no delay in the washout of either collecting system. (< 10 min normal, 10-15 min Low grade obstruction, 15-20 min moderate,. 20 min high grade) Split renal function: Right: 46.5 % Left: 53.5 % IMPRESSION: 1. No evidence of obstruction. The time to maximum activity of the right kidney shows mild delay..
[2020-07-02] MEDS: Furosemide 40 MG/4 ML VIAL 22 MG IVP (11:13)
== END 2020-07-02 04:21 ==
PROVIDERS: PCP Family Medicine; Visit Provider Urology
DX: N13.30 Unspecified hydronephrosis (principal)
CPT/HCPCS: 78708; J1940

== ENCOUNTER 2020-10-14 11:45 | Outpatient (REF) | payer MEDICAID, SELFPAY ==
[2020-10-14 12:39] LABS: Bilirubin Negative (Negative); Blood Negative (Negative); Clarity Clear (Clear); Glucose Negative (Negative); Ketones Negative (Negative); Leukocyte Esterase Negative (Negative); Nitrite Negative (Negative); Specific Gravity 1.025 (1.005-1.025); Urobilinogen 0.2 EU/dL (Up TO 0.2)
== END 2020-10-14 12:05 ==
LOC: LBN 11:45
PROVIDERS: PCP Family Medicine; Visit Provider Family Medicine
DX: N39.0 Urinary tract infection, site not specified (principal)
CPT/HCPCS: 81003

== ENCOUNTER 2021-04-15 09:49 | Outpatient (CLI) | payer MEDICAID, SELFPAY ==
[2021-04-15 12:50] LABS: Hemoglobin A1C 6.7 % (<5.7)
[2021-04-15 13:06] LABS: ALT 25 U/L (14-59); AST 10 U/L (15-37); Albumin 3.6 g/dL (3.4-5.0); Alkaline Phosphatase 68 U/L (46-116); Anion Gap 13.1 mmol/L (3-11); BUN 12 mg/dL (7-18); Bilirubin, Total 0.4 mg/dL (0.2-1.0); CO2 22.9 mmol/L (21.0-32.0); CREATININE 0.6 mg/dL (0.55-1.02); Calcium 8.8 mg/dL (8.5-10.1); Calculated LDL 86 mg/dL (<100); Chloride 105 mmol/L (98-107); Cholesterol 172 mg/dL (<200); Glucose 183 mg/dL (74-106); HDL Cholesterol 63 mg/dL (40-60); Potassium 3.6 mmol/L (3.5-5.1); Sodium 141 mmol/L (136-145); TSH (W/Ref FT4) 0.61 uIU/mL (0.36-3.74); Total Protein 6.7 g/dL (6.4-8.2); Triglyceride 119 mg/dL (<150)
== END 2021-04-15 09:50 | disposition home or self-care (01) ==
LOC: LOS 09:49
PROVIDERS: PCP Nurse Practitioner Family; Visit Provider Nurse Practitioner Family
DX: E11.9 Type 2 diabetes mellitus without complications (principal); Z13.220 Encounter for screening for lipoid disorders; Z13.29 Encounter for screening for other suspected endocrine disorder
CPT/HCPCS: 36415; 80053; 80061; 83036; 84443

== ENCOUNTER 2021-05-19 12:39 | Outpatient (REF) | payer MEDICAID, SELFPAY | END 2021-05-19 12:40 | disposition home or self-care (01) | LOC: LBN 12:39 | PROVIDERS: PCP Nurse Practitioner Family; Visit Provider Nurse Practitioner Family | DX: N89.8 Other specified noninflammatory disorders of vagina (principal) | CPT/HCPCS: 87480; 87510; 87660 ==

== ENCOUNTER 2021-05-20 03:52 | Outpatient (CLI) | payer MEDICAID, SELFPAY ==
--- NOTE | 2021-05-20 07:30 | DI.US_ITS ---
Exam(s) US RENAL EXAM: US RENAL CLINICAL HISTORY: hematuria/flank pain,R31.9. TECHNIQUE: Lyon scale, color and spectral Doppler were used. COMPARISON: US US RENAL from 05/10/2020 FINDINGS: Renal size in cm: Right: 13.7. Left: 13.6. Echogenicity: Normal. Hydronephrosis: There is again seen mild prominence of both renal pelves. They are unchanged compare d to the examination from 05/10/2020. This may represent prominent extrarenal pelves. Cyst or mass: No. Nephrolithiasis: No. Other findings: None. Bladder:Normal. Ureteral jets: Right: Visualized and unremarkable. Left: Visualized and unremarkable. Prevoid vol:120 cc Postvoid vol:0 cc Renal color flow: Symmetric and within normal limits. IMPRESSION: 1. No nephrolithiasis. 2. Stable mild dilatation of both renal pelves when compared to 05/10/2020. This may represent bilate ral prominent extrarenal pelves. DATA REPOSITORY:
== END 2021-05-20 04:12 ==
PROVIDERS: PCP Nurse Practitioner Family; Visit Provider Nurse Practitioner Family
DX: R31.9 Hematuria, unspecified (principal); N28.89 Other specified disorders of kidney and ureter
CPT/HCPCS: 76770

== ENCOUNTER 2021-06-22 01:45 | Outpatient (CLI) | payer MEDICAID, SELFPAY ==
--- NOTE | 2021-06-22 07:30 | DI.MAMMO_ITS ---
Exam(s) MAMMO SCREENING EXAM: MAMMO SCREENING CLINICAL HISTORY: screening,BASELINE, Z12.39 TECHNIQUE: Bilateral full field digital CC and MLO mammographic images were obtained with 3D tomosyn thesis and utilizing computer aided detection (CAD). COMPARISON: None. FINDINGS: Masses/Architectural Distortion: There is an asymmetry in the upper posterior right breast on the MLO view. Microcalcifications: No suspicious pleomorphic-type are seen. Skin Thickening/Nipple Retraction: None. IMPRESSION: 1. Asymmetry in the upper posterior right breast on the MLO. 2. This area should be further evaluated with spot compression view. Ultrasound may be indicated at that time. BI-RADS Category 0 - Assessment Incomplete: Need additional imaging evaluation Breast Density - Category B - Scattered areas of fibroglandular density Breast density category C or D implies that the patient has dense breast tissue. Dense breast tissue is very common and is not abnormal but dense breast tissue can make it harder to find cancer on a ma mmogram. Also, dense breast tissue may increase their breast cancer risk. This information about the result of the mammogram report was provided to the patient to raise their awareness. Use this report when you speak with the patient about their risks for breast cancer, which includes their family hist ory. At that time, you may recommend for more screening tests (Ultrasound or MRI) as they might be us eful based on their risk. A negative radiographic report should not delay biopsy if a dominant or clinically suspicious mass is present. Up to ten percent of cancers are not identified on mammography. A negative report may reinforce clinical impression. Adenosis and dense breasts may obscure an underlying neoplasm. False positive reports average 6 to 10%. Patient will receive a letter notifying them of these results.
== END 2021-06-22 02:05 ==
PROVIDERS: PCP Nurse Practitioner Family; Visit Provider Nurse Practitioner Family
DX: Z12.31 Encounter for screening mammogram for malignant neoplasm of breast (principal); R92.8 Other abnormal and inconclusive findings on diagnostic imaging of breast
CPT/HCPCS: 77063; 77067

== ENCOUNTER 2021-06-22 09:07 | Outpatient (REF) | payer MEDICAID, SELFPAY ==
--- NOTE | 2021-06-22 09:00 | PAPFT_PTH ---
PATIENT: Cristina Guajardo LOC: [facility] U#:[id number] AGE/SX: 50/F ROOM: RE06/22/[address]: John Paul Chavez NP : 1970 BED: DIS: 06/22/2021 SPEC #: [id number] RECD: 06/22/21 17:24 STATUS: MIGDALIA RELaura #: [id number] DANIEL: 06/22/21 09:[address]: John Paul Chavez [facility] Cytology RECD BY: Katharine Villanueva Tissues: 1 - CX/ENDOCX FOR PAP SMEARS Procedures: PAP THIN PREP/UVM Screening Comments: [id number] (UNSATISFACTORY FOR EVALUATION)
== END 2021-06-22 09:08 | disposition home or self-care (01) ==
LOC: LBN 09:07
PROVIDERS: PCP Nurse Practitioner Family; Visit Provider Nurse Practitioner Family
DX: Z12.4 Encounter for screening for malignant neoplasm of cervix (principal); R87.615 Unsatisfactory cytologic smear of cervix
CPT/HCPCS: 88142

== ENCOUNTER 2021-07-20 14:37 | Outpatient (REF) | payer MEDICAID, SELFPAY ==
--- NOTE | 2021-07-20 14:15 | PAPFT_PTH ---
PATIENT: Cristina Guajardo LOC: [facility] U#:[id number] AGE/SX: 50/F ROOM: RE07/20/[address]: John Paul Chavez NP : 1970 BED: DIS: 07/20/2021 SPEC #: [id number] RECD: 07/21/21 12:58 STATUS: MIGDALIA RELaura #: [id number] DANIEL: 07/20/21 14:[address]: John Paul Chavez DEPT: [facility] Cytology RECD BY: Katharine Villanueva Tissues: 1 - CX/ENDOCX FOR PAP SMEARS Procedures: PAP THIN PREP/UVM Screening HPV DNA PROBE Comments: [id number]
== END 2021-07-20 14:38 | disposition home or self-care (01) ==
LOC: LBN 14:37
PROVIDERS: PCP Nurse Practitioner Family; Visit Provider Nurse Practitioner Family
DX: Z12.4 Encounter for screening for malignant neoplasm of cervix (principal); Z11.51 Encounter for screening for human papillomavirus (HPV)
CPT/HCPCS: 88142; 87624

== ENCOUNTER 2021-08-23 01:22 | Outpatient (CLI) | payer MEDICAID, SELFPAY ==
--- NOTE | 2021-08-23 | DI.US_ITS ---
Exam(s) MG MAMMO SCREEN CALL BACK UNI US BREAST RT LIMITED EXAM: MG MAMMO SCREEN CALL BACK UNI CLINICAL HISTORY: F/U MAMMO, UPPER POSTERIOR RT BREAST ASYMMETRY TECHNIQUE: Mammograms were interpreted according to the usual protocol including computer analysis w ith CAD system, tomosynthesis and C-view imaging. COMPARISON: FINDINGS: Additional mammographic views of the right breast and right breast ultrasound are interpreted in conj unction. These examinations were obtained to evaluate questionable area of asymmetric density projec donte in the upper outer quadrant of right breast on MLO view of recent mammogram. Spot compression ML O view of the right breast today shows no evidence a mass. Breast ultrasound shows no evidence of a mass or cyst in the upper outer quadrant of the right breast. There is a tiny apparent incidental ly mph node noted ultrasonographically. IMPRESSION: No specific evidence of malignancy at this time. Follow-up unilateral right breast mammogram recomme nded in 6 months. BI-RADS Category 3 - 6 month - Probably Benign Finding: Recommend follow-up mammography in 6 months Breast Density - Category B - Scattered areas of fibroglandular density
== END 2021-08-23 01:42 ==
PROVIDERS: PCP Nurse Practitioner Family; Visit Provider Nurse Practitioner Family
DX: R92.8 Other abnormal and inconclusive findings on diagnostic imaging of breast (principal)
CPT/HCPCS: 76642; 77063; 77067

== ENCOUNTER 2021-12-29 15:05 | Outpatient (CLI) | payer MEDICAID, SELFPAY ==
--- NOTE | 2021-12-29 07:30 | DI.US_ITS ---
Exam(s) US ABDOMEN LIMITED EXAM: US ABDOMEN LIMITED CLINICAL HISTORY: severe RUQ pain worse after eating R10.9 ABD PAIN TECHNIQUE: Ultrasound performed using standard protocol. COMPARISON: US US BREAST RT LIMITED from 08/23/2021 FINDINGS: Right upper quadrant was performed according to the usual protocol. Liver parenchyma is unremarkable with no focal lesion. Pancreas appears intact. There is no evidence of cholelithiasis or biliary d ilatation. There is a negative sonographic Gilbert sign. Portal venous flow is normal directional. Right kidney is unremarkable appearance with no hydronephrosis or nephrolithiasis. IMPRESSION: Negative right upper quadrant ultrasound. DATA REPOSITORY:
== END 2021-12-29 15:25 ==
PROVIDERS: PCP Nurse Practitioner Family; Visit Provider Family Medicine
DX: R10.9 Unspecified abdominal pain (principal)
CPT/HCPCS: 76705

== ENCOUNTER 2021-12-29 20:49 | Outpatient (CLI) | payer MEDICAID, SELFPAY ==
[2021-12-29 08:51] LABS: Abs Immature Grans 0.05 10^3/uL (0.0-0.06); Absolute Basophil Count 0.06 10^3/uL (0.0-0.2); Absolute Monocyte Count 0.56 10^3/uL (0.1-0.8); Basophils % 0.5; HCT 43.3 % (36.0-46.0); HGB 14.3 g/dL (11.2-15.7); Immature Grans % 0.4; Lymphocytes % 17.3; MCH 30.6 pg (27.0-33.0); MCV 92.7 fL (80-95); MPV 9.5 fL (8.0-11.0); Monocytes % 4.9; Neutrophils % 75.9; Nucleated RBC 0 %; Platelet Count 332 10^3/uL (130-400); RBC 4.67 10^6/uL (3.93-5.22); RDW 12.9 % (11.7-14.6); RDW-SD 44.3 fL; WBC 11.47 10^3/uL (4.4-10.8)
[2021-12-29 08:53] LABS: Bilirubin Negative (Negative); Blood Negative (Negative); Clarity Clear (Clear); Glucose >=1000 mg/dL (Negative); Ketones Trace mg/dL (Negative); Leukocyte Esterase Negative (Negative); Nitrite Negative (Negative); Specific Gravity >= 1.030 (1.005-1.025); Urobilinogen 0.2 EU/dL (Up TO 0.2); pH 5.5 (5-8)
[2021-12-29 08:54] LABS: Absolute Eosinophil Count 0.11 10^3/uL (0.0-0.7); Absolute Lymphocyte Count 1.98 10^3/uL (1.2-3.4); Absolute Neutrophil Count 8.71 10^3/uL (1.2-6.7)
[2021-12-29 09:00] LABS: Bacteria Rare HPF (Negative); C & S Indicated? No; Casts Negative LPF (Negative); Crystals Negative HPF (Negative); Epithelial Cells Rare HPF (Negative); Mucus Heavy (Negative); RBC 0-2 HPF (0-2); WBC 0-2 HPF (0-5)
[2021-12-29 09:06] LABS: ALT 18 U/L (14-59); AST 8 U/L (15-37); Alkaline Phosphatase 92 U/L (46-116); Anion Gap 10.9 mmol/L (3-11); BUN 12 mg/dL (7-18); Bilirubin, Total 0.7 mg/dL (0.2-1.0); C-Reactive Protein 0.56 mg/dL (0.0-0.3); CO2 25.1 mmol/L (21.0-32.0); CREATININE 0.9 mg/dL (0.55-1.02); Calcium 9.3 mg/dL (8.5-10.1); Chloride 102 mmol/L (98-107); Glucose 293 mg/dL (74-106); Lipase 827 U/L (73-393); Sodium 138 mmol/L (136-145); Total Protein 8.2 g/dL (6.4-8.2)
== END 2021-12-29 20:50 | disposition home or self-care (01) ==
LOC: LBO 20:55
PROVIDERS: PCP Nurse Practitioner Family; Visit Provider Family Medicine
DX: R19.8 Other specified symptoms and signs involving the digestive system and abdomen (principal); I10 Essential (primary) hypertension
CPT/HCPCS: 36415; 80053; 83690; 81003; 81015; 85025; 86140

== ENCOUNTER 2021-12-30 20:29 | Outpatient (CLI) | payer MEDICAID, SELFPAY ==
[2021-12-30 13:15] LABS: Abs Immature Grans 0.03 10^3/uL (0.0-0.06); Absolute Basophil Count 0.06 10^3/uL (0.0-0.2); Absolute Eosinophil Count 0.17 10^3/uL (0.0-0.7); Absolute Lymphocyte Count 2.88 10^3/uL (1.2-3.4); Absolute Monocyte Count 0.62 10^3/uL (0.1-0.8); Absolute Neutrophil Count 8.11 10^3/uL (1.2-6.7); Basophils % 0.5; Eosinophils % 1.4; HCT 40.4 % (36.0-46.0); HGB 13.5 g/dL (11.2-15.7); Immature Grans % 0.3; Lymphocytes % 24.3; MCH 30.7 pg (27.0-33.0); MCHC 33.4 % (32.0-36.0); MCV 91.8 fL (80-95); MPV 9.6 fL (8.0-11.0); Monocytes % 5.2; Neutrophils % 68.3; Nucleated RBC 0 %; Platelet Count 328 10^3/uL (130-400); RDW 12.8 % (11.7-14.6); RDW-SD 43.4 fL; WBC 11.87 10^3/uL (4.4-10.8)
[2021-12-30] MEDS: Breeza Beverage 473 ML BTL PO (13:18)
[2021-12-30] MEDS: Omnipaque 350 MG/ML 50 ML BTL IJ (13:18)
[2021-12-30 13:35] LABS: ALT 19 U/L (14-59); AST 7 U/L (15-37); Albumin 3.7 g/dL (3.4-5.0); Alkaline Phosphatase 86 U/L (46-116); Anion Gap 10.5 mmol/L (3-11); BUN 15 mg/dL (7-18); Bilirubin, Total 0.7 mg/dL (0.2-1.0); CO2 25.5 mmol/L (21.0-32.0); CREATININE 0.9 mg/dL (0.55-1.02); Calcium 8.8 mg/dL (8.5-10.1); Chloride 100 mmol/L (98-107); Glucose 348 mg/dL (74-106); Lipase 1486 U/L (73-393); Potassium 3.3 mmol/L (3.5-5.1); Sodium 136 mmol/L (136-145); Total Protein 7.6 g/dL (6.4-8.2)
[2021-12-30] MEDS: Omnipaque 350 MG/ML 100 ML BTL IJ (15:30)
--- NOTE | 2021-12-30 15:30 | DI.CT_ITS ---
Exam(s) CT ABDOMEN PELVIS W EXAM: CT ABDOMEN PELVIS W CLINICAL HISTORY: severe abd pain, elevAted lipase, acute pancreatitis. TECHNIQUE: Imaging Protocol: Axial computed tomography images with coronal and sagittal reformatted images were created and reviewed CONTRAST MATERIAL: Intravenous: Omnipaque 100cc Oral: Yes COMPARISON: CT CT RENAL COLIC WO from 01/24/2020 FINDINGS: VISUALIZED LUNG BASES: No nodules nor pleural effusions evident. ABDOMEN: There is no ascites. LIVER: There are no focal hepatic lesions evident. No dilated intrahepatic ducts. GALLBLADDER/BILIARY: No obvious gallbladder pathology. CBD is not dilated. PANCREAS: No evidence of pancreatic mass nor dilatation of the pancreatic duct. SPLEEN: Spleen is not enlarged. No obvious intrasplenic lesions. Splenic and portal veins are paten t. ADRENALS: Small nodule at the genu of the left adrenal gland measuring 1.2 x 1.1 cm, probably an allegra adán. Opposite-right adrenal gland unremarkable. KIDNEYS:No cysts evident. No solid renal masses. No calculi nor hydronephrosis.. ABDOMINAL AORTA: Moderately atherosclerotic infrarenal abdominal aorta. No aneurysm. LYMPH NODES:There is no retroperitoneal nor paraaortic adenopathy. ABDOMINAL WALL: No evidence of significant anterior abdominal wall nor inguinal hernia. However, the re is skin thickening and subcutaneous streaking over the anterior left abdominal wall, below the lev el of the umbilicus left of center. There is no drainable fluid collection at this level. GI: There is no evidence of bowel obstruction, free air, nor abscess. PELVIS: GI: No evidence of appendicitis.No evidence of sigmoid diverticulitis. LYMPH NODES: There is no intrapelvic nor inguinal adenopathy. REPRODUCTIVE: Uterus and adnexal regions are age-appropriate. No abnormal adnexal masses nor free fl uid in the pelvis. URINARY BLADDER: No calculi nor obvious masses evident OSSEOUS: No significant osseous lesions. Previous lumbar spine laminectomies.. Advanced disc space narrowing at L4-5 level. IMPRESSION: 1. Compared to the prior CT scan of January 2020 there presently no renal calculi, hydronephrosis nor h ydroureter nor calculi evident within the urinary bladder. 2. Small nodule at the genu of the left adrenal gland is unchanged and probably a small adenoma. Blackwell osite-right adrenal gland is unremarkable. 3. There is subcutaneous streaking over left side of the anterior abdominal wall, unchanged from the prior study. There is no formed fluid collection at this level. Similar streaking is not seen on th e right side. No evidence of anterior abdominal hernia. 4. No evidence of appendicitis nor diverticulitis. RADIATION DOSE DELIVERED: 882.16mGy.cm Total DLP DATA REPOSITORY: All CT scans at this facility are submitted to the National Radiology Data Registry (NRDR) Dose Index Registry (DIR) with the [employer] (ACR). RADIATION OPTIMIZATION: All CT scans at this facility use at least one of these dose optimization te chniques: automated exposure control; mA and/or kV adjustment per patient size (includes targeted exa ms where dose is matched to clinical indication); or iterative reconstruction.
== END 2021-12-30 20:49 ==
PROVIDERS: PCP Nurse Practitioner Family; Visit Provider Family Medicine
DX: K85.90 Acute pancreatitis without necrosis or infection, unspecified (principal); I10 Essential (primary) hypertension
CPT/HCPCS: 80053; 83690; 74177; 85025; J3490; Q9967

== ENCOUNTER 2022-01-02 15:59 | Outpatient (REF) | payer MEDICAID, SELFPAY ==
[2022-01-02 20:00] LABS: ALT 16 U/L (14-59); AST 9 U/L (15-37); Albumin 3.8 g/dL (3.4-5.0); Alkaline Phosphatase 95 U/L (46-116); Anion Gap 13.3 mmol/L (3-11); BUN 15 mg/dL (7-18); Bilirubin, Total 0.7 mg/dL (0.2-1.0); CO2 22.7 mmol/L (21.0-32.0); CREATININE 0.7 mg/dL (0.55-1.02); Calcium 9.1 mg/dL (8.5-10.1); Chloride 102 mmol/L (98-107); Glucose 275 mg/dL (74-106); Lipase 854 U/L (73-393); Potassium 3.9 mmol/L (3.5-5.1); Sodium 138 mmol/L (136-145); Total Protein 7.2 g/dL (6.4-8.2)
== END 2022-01-02 16:00 | disposition home or self-care (01) ==
LOC: LBN 15:59
PROVIDERS: PCP Nurse Practitioner Family; Visit Provider Family Medicine
DX: I10 Essential (primary) hypertension (principal); K85.90 Acute pancreatitis without necrosis or infection, unspecified
CPT/HCPCS: 80053; 83690

== ENCOUNTER 2022-01-12 03:30 | Outpatient (CLI) | payer MEDICAID, SELFPAY ==
[2022-01-12 14:20] LABS: Lipase 740 U/L (73-393)
== END 2022-01-12 03:31 | disposition home or self-care (01) ==
LOC: LBO 03:30
PROVIDERS: PCP Nurse Practitioner Family; Visit Provider Nurse Practitioner Family
DX: K85.90 Acute pancreatitis without necrosis or infection, unspecified (principal)
CPT/HCPCS: 36415; 83690

== ENCOUNTER 2022-02-20 00:36 | Outpatient (CLI) | payer MEDICAID, SELFPAY ==
--- NOTE | 2022-02-20 08:45 | DI.MAMMO_ITS ---
Exam(s) MG MAMMO DIAGNOSTIC UNI EXAM: MG MAMMO DIAGNOSTIC UNI CLINICAL HISTORY: 3-6 mo f/u abnormal mammo of rt breast,R92.8,Z09. TECHNIQUE: Craniocaudal and mediolateral oblique Full Field Digital Mammography views of the breast with Computer Aided Diagnosis followed by Tomosynthesis. COMPARISON: 2020 FINDINGS: Mammography/Tomosynthesis: Masses/Architectural Distortion: None seen. Microcalcifictions: No suspicious pleomorphic-type are seen. Skin Thickening/Nipple Retraction: None. IMPRESSION: 1. No evidence of malignancy is noted. 2. Unless there is more urgent need, screening mammography is recommended in 6 months. BI-RADS Category 1 - Negative Breast Density - Category B - Scattered areas of fibroglandular density A negative radiographic report should not delay biopsy if a dominant or clinically suspicious mass is present. Up to ten percent of cancers are not identified on mammography. A negative report may reinforce clinical impression. Adenosis and dense breasts may obscure an underlying neoplasm. False positive reports average 6 to 10%. Patient will receive a letter notifying them of these results.
== END 2022-02-20 00:56 ==
PROVIDERS: PCP Nurse Practitioner Family; Visit Provider Nurse Practitioner Family
DX: R92.8 Other abnormal and inconclusive findings on diagnostic imaging of breast (principal); Z09 Encounter for follow-up examination after completed treatment for conditions other than malignant neoplasm
CPT/HCPCS: 77061; 77065; G0279

== ENCOUNTER 2022-03-21 19:16 | Outpatient (REF) | payer MEDICAID, SELFPAY ==
[2022-03-21 21:53] LABS: Bilirubin Negative (Negative); Blood Small (Negative); Clarity Clear (Clear); Glucose >=1000 mg/dL (Negative); Ketones Negative (Negative); Leukocyte Esterase Negative (Negative); Nitrite Negative (Negative); Urobilinogen 0.2 EU/dL (Up TO 0.2); pH 6.5 (5-8)
[2022-03-21 22:10] LABS: Bacteria Negative HPF (Negative); C & S Indicated? Yes; Casts Negative LPF (Negative); Crystals Negative HPF (Negative); Epithelial Cells Negative HPF (Negative); Mucus Negative (Negative); Other Cells Negative (Negative); WBC >50 HPF (0-5)
== END 2022-03-21 19:17 | disposition home or self-care (01) ==
LOC: LBN 19:16
PROVIDERS: PCP Nurse Practitioner Family; Visit Provider Physician Assistant
DX: R39.89 Other symptoms and signs involving the genitourinary system (principal)
CPT/HCPCS: 87077; 81003; 81015; 87086; 87186

== ENCOUNTER → 2022-03-27 02:18 | Outpatient (CLI) | payer MEDICAID, SELFPAY ==
--- NOTE | 2022-03-27 08:00 | DI.US_ITS ---
Exam(s) US RENAL EXAM: US RENAL CLINICAL HISTORY: monitoring hydroNEPHROSIS,N13.30. TECHNIQUE: Lyon scale, color and spectral Doppler were used. COMPARISON: CT CT ABDOMEN PELVIS W from 12/30/2021 FINDINGS: Renal size in cm: Right: 12.5 left: 12.6 Echogenicity: Normal Hydronephrosis: No Cyst or mass: No Nephrolithiasis: No Bladder:Normal Prevoid vol:6 cc Postvoid vol:Not performed IMPRESSION: No evidence of hydronephrosis. No visible calculi. DATA REPOSITORY:
== END ==
PROVIDERS: PCP Nurse Practitioner Family; Visit Provider Nurse Practitioner Gerontology
DX: N13.30 Unspecified hydronephrosis (principal)
CPT/HCPCS: 76770

== ENCOUNTER 2022-05-23 13:06 | Outpatient (REF) | payer MEDICAID, SELFPAY ==
--- NOTE | 2022-05-23 12:00 | ORMUBX_PTH ---
PATIENT: Cristina Guajardo LOC: [facility] U#:[id number] AGE/SX: 51/F ROOM: RE05/23/[address]: Prosper Jaramillo MD : 1970 BED: DIS: 05/23/2022 SPEC #: [id number] RECD: 05/23/22 18:16 STATUS: MIGDALIA RELaura #: [id number] DANIEL: 05/23/22 12:[address]: Prosper Jaramillo DEPT: Surgical Specimen RECD BY: Katharine Villanueva ENTERED: 05/23/22 18:17 SP TYPE: ORMUBX OTHR DR: John Paul Chavez, LINDSAY Tissues: 1 - MUCOSA, NOS Procedures: GROSS AND MICRO LEVEL 4 Comments: [id number]
== END 2022-05-23 13:07 | disposition home or self-care (01) ==
LOC: LBN 13:06
PROVIDERS: PCP Nurse Practitioner Family; Visit Provider Otolaryngology
DX: K13.29 Other disturbances of oral epithelium, including tongue (principal); K13.21 Leukoplakia of oral mucosa, including tongue; F17.210 Nicotine dependence, cigarettes, uncomplicated
CPT/HCPCS: 88305

== ENCOUNTER 2022-07-10 11:43 | Outpatient (REF) | payer MEDICAID, SELFPAY ==
--- NOTE | 2022-07-10 10:45 | ORMUBX_PTH ---
PATIENT: Cristina Guajardo LOC: [facility] U#:[id number] AGE/SX: 51/F ROOM: RE07/10/[address]: Prosper Jaramillo MD : 1970 BED: DIS: 07/10/2022 SPEC #: [id number] RECD: 07/10/22 16:55 STATUS: MIGDALIA RELaura #: [id number] DANIEL: 07/10/22 10:[address]: Prosper Jaramillo DEPT: Surgical Specimen RECD BY: Katharine Villanueva ENTERED: 07/10/22 16:56 SP TYPE: ORMUBX OTHR DR: John Paul Chavez, LINDSAY Tissues: 1 - MUCOSA, NOS Procedures: GROSS AND MICRO LEVEL 4 Comments: [id number]
== END 2022-07-10 11:44 | disposition home or self-care (01) ==
LOC: LBN 11:43
PROVIDERS: PCP Nurse Practitioner Family; Visit Provider Otolaryngology
DX: K13.21 Leukoplakia of oral mucosa, including tongue (principal); F17.210 Nicotine dependence, cigarettes, uncomplicated
CPT/HCPCS: 88305

== ENCOUNTER 2022-11-08 21:10 | Outpatient (REF) | payer MEDICAID, SELFPAY ==
[2022-11-08 22:04] LABS: ALT 21 U/L (14-59); AST 14 U/L (15-37); Albumin 3.8 g/dL (3.4-5.0); Alkaline Phosphatase 93 U/L (46-116); Anion Gap 7.7 mmol/L (3-11); BUN 12 mg/dL (7-18); Bilirubin, Total 0.4 mg/dL (0.2-1.0); CO2 25.3 mmol/L (21.0-32.0); CREATININE 0.6 mg/dL (0.55-1.02); Calcium 9.4 mg/dL (8.5-10.1); Chloride 103 mmol/L (98-107); Estimated GFR 109.28 (mL/min/1.73m2); Glucose 163 mg/dL (74-106); Lipase 185 U/L (73-393); Potassium 3.6 mmol/L (3.5-5.1); Sodium 136 mmol/L (136-145); Total Protein 7.5 g/dL (6.4-8.2)
[2022-11-08 22:28] LABS: Calculated LDL 111 mg/dL (<100); Cholesterol 220 mg/dL (<200); HDL Cholesterol 67 mg/dL (40-60); Triglyceride 210 mg/dL (<150)
== END 2022-11-08 21:11 | disposition home or self-care (01) ==
LOC: NCHCN 21:10
PROVIDERS: Visit Provider Nurse Practitioner Family
DX: Z87.19 Personal history of other diseases of the digestive system (principal); E78.5 Hyperlipidemia, unspecified
CPT/HCPCS: 80053; 80061; 83690

== ENCOUNTER 2022-12-13 01:17 | Outpatient (CLI) | payer MEDICAID, SELFPAY ==
--- NOTE | 2022-12-13 | DI.MAMMO_ITS ---
Exam(s) MAMMO SCREENING EXAM: MAMMO SCREENING CLINICAL HISTORY: SCREENING, Z12.39 TECHNIQUE: Bilateral full field digital CC and MLO mammographic images were obtained with 3D tomosyn thesis and utilizing computer aided detection (CAD). COMPARISON: Available for comparison. FINDINGS: Masses/Architectural Distortion: None seen. Microcalcifications: No suspicious pleomorphic-type are seen. Skin Thickening/Nipple Retraction: None. IMPRESSION: 1. No significant interval change with no specific features of malignancy noted. 2. Unless there is more urgent need, screening mammography is recommended, as per [employer] guidelines. BI-RADS Category 1 - Negative Breast Density - Category B - Scattered areas of fibroglandular density Breast density category C or D implies that the patient has dense breast tissue. Dense breast tissue is very common and is not abnormal but dense breast tissue can make it harder to find cancer on a ma mmogram. Also, dense breast tissue may increase their breast cancer risk. This information about the result of the mammogram report was provided to the patient to raise their awareness. Use this report when you speak with the patient about their risks for breast cancer, which includes their family hist ory. At that time, you may recommend for more screening tests (Ultrasound or MRI) as they might be us eful based on their risk. A negative radiographic report should not delay biopsy if a dominant or clinically suspicious mass is present. Up to ten percent of cancers are not identified on mammography. A negative report may reinforce clinical impression. Adenosis and dense breasts may obscure an underlying neoplasm. False positive reports average 6 to 10%. Patient will receive a letter notifying them of these results.
== END 2022-12-13 01:37 ==
LOC: DI 01:17
PROVIDERS: PCP Nurse Practitioner Family; Visit Provider Nurse Practitioner Family
DX: Z12.31 Encounter for screening mammogram for malignant neoplasm of breast (principal)
CPT/HCPCS: 77063; 77067

== ENCOUNTER 2023-01-24 09:49 | Outpatient (CLI) | payer MEDICAID, SELFPAY | END 2023-01-24 09:50 | disposition home or self-care (01) | LOC: LOS 09:49 | PROVIDERS: PCP Nurse Practitioner Family; Referring Provider Nurse Practitioner Family; Visit Provider Nurse Practitioner Family | DX: R53.83 Other fatigue (principal) | CPT/HCPCS: 36415; 84443 ==

== ENCOUNTER 2023-03-06 11:02 | Outpatient (CLI) | payer MEDICAID, SELFPAY ==
--- NOTE | 2023-03-06 07:00 | DI.RAD_ITS ---
Exam(s) XR SHOULDER RT COMPLETE 2+V EXAM: XR SHOULDER RT COMPLETE 2+V CLINICAL HISTORY: right shoulder pain,M25.511. TECHNIQUE: 2D digital imaging was performed of the right shoulder. Six images were obtained. AP, G rashey, Y-view and axillary views were obtained. COMPARISON: No exams were available for comparison FINDINGS: BONES: No acute fracture is present. No bony destructive lesion is seen. JOINTS: No dislocation present. Mild degenerative changes are seen at the acromioclavicular joint wit h mild bony hypertrophy. The glenohumeral joint is well maintained. SOFT TISSUE: Normal. IMPRESSION: Mild degenerative changes of the AC joint. DATA REPOSITORY: RADIATION DOSE DELIVERED:
== END 2023-03-06 11:22 ==
LOC: DI 11:06
PROVIDERS: PCP Nurse Practitioner Family; Visit Provider Nurse Practitioner Family
DX: M19.011 Primary osteoarthritis, right shoulder (principal)
CPT/HCPCS: 73030

== ENCOUNTER 2023-03-22 01:34 | Outpatient (CLI) | payer MEDICAID, SELFPAY ==
--- NOTE | 2023-03-22 08:00 | DI.US_ITS ---
Exam(s) US RENAL EXAM: US RENAL CLINICAL HISTORY: monitoring R. Renal stone,KIDNEY STONE,N20.0 TECHNIQUE: Ultrasound of both kidneys performed using standard protocol. COMPARISON: No exams were available for comparison FINDINGS: RIGHT KIDNEY: Measures 12 cm in length. No cysts evident. Normal cortical thickness and corticomedullary differenti ation .No solid masses No intrarenal calculi nor hydronephrosis. LEFT KIDNEY: Measures 12 cm in length. No cysts evident. Normal cortical thickness and corticomedullary different iaion. No solids masses. No intrarenal calculi nor hydonephrosis. URINARY BLADDER: Prevoid volume is 81 cc Postvoid volume is 2 cc No evidence of obvious bladder mass nor diverticuli. Ureterovesical jets: Both identified and appear symmetrical IMPRESSION: 1. No significant ultrasound findings in the kidneys. 2. No obvious abnormality bladder. DATA REPOSITORY:
== END 2023-03-22 01:54 ==
LOC: DI 01:35
PROVIDERS: PCP Nurse Practitioner Family; Visit Provider Nurse Practitioner Gerontology
DX: N20.0 Calculus of kidney (principal)
CPT/HCPCS: 76770

== ENCOUNTER 2023-07-03 02:43 | Outpatient (CLI) | payer MEDICAID, SELFPAY ==
[2023-07-03 13:47] LABS: Lipase > 375 U/L (16-77)
== END 2023-07-03 02:44 | disposition home or self-care (01) ==
LOC: LOS 02:43
PROVIDERS: PCP Nurse Practitioner Family; Visit Provider Nurse Practitioner Family
DX: K85.90 Acute pancreatitis without necrosis or infection, unspecified (principal); E11.9 Type 2 diabetes mellitus without complications; Z79.4 Long term (current) use of insulin; R53.83 Other fatigue
CPT/HCPCS: 36415; 83690

== ENCOUNTER → 2023-08-21 01:18 | Outpatient (CLI) | payer MEDICAID, SELFPAY ==
--- NOTE | 2023-08-21 07:45 | DI.MRI_ITS ---
Exam(s) MR UPPER JOINT RT WO EXAM: MR UPPER JOINT RT WO CLINICAL HISTORY: R SHOULDER PAIN, RT ROTATOR CUFF TEAR, M75.101. TECHNIQUE: Multiplanar multisequence MRI was performed. COMPARISON: CR XR SHOULDER RT COMPLETE 2+V from 03/06/2023 FINDINGS: BONES: There is no fracture or contusion pattern. JOINTS: There are mild degenerative changes seen at the acromioclavicular joint. The glenohumeral chema int is normal. TENDONS: Supraspinatus: Mild tendinosis of the supraspinatus tendon without evidence of a tear. Infraspinatus: Unremarkable. Subscapularis: Mild tendinosis of the subscapularis tendon without evidence of a tear. Teres Minor: Unremarkable. Biceps and [place]: Unremarkable. MUSCLES: Unremarkable. GLENOID LABRUM: Unremarkable on this noncontrast examination. SOFT TISSUES: Unremarkable. LIGAMENTS: Unremarkable. OTHER: Subacromial and subdeltoid bursae are unremarkable. IMPRESSION: 1. No evidence of a rotator cuff tear. 2. Mild tendinosis of the supraspinatus and subscapularis tendons. 3. Mild degenerative changes of the acromioclavicular joint. DATA REPOSITORY:
== END ==
PROVIDERS: PCP Nurse Practitioner Family; Visit Provider Student in an Organized Health Care Education/Training Program
DX: M67.813 Other specified disorders of tendon, right shoulder (principal)
CPT/HCPCS: 73221

== ENCOUNTER 2023-09-19 11:09 | Outpatient (REF) | payer MEDICAID, SELFPAY ==
[2023-09-19 13:07] LABS: Bilirubin Negative (Negative); Blood Small (Negative); Clarity Cloudy (Clear); Glucose Negative (Negative); Ketones Negative (Negative); Leukocyte Esterase Trace (Negative); Nitrite Negative (Negative); Urobilinogen 0.2 mg/dL (Up to 0.2); pH 5.5 (5-8)
[2023-09-19 13:26] LABS: Bacteria Moderate HPF (Negative); C & S Indicated? C&S Done As Ordered; Casts Negative LPF (Negative); Crystals Negative HPF (Negative); Epithelial Cells Few HPF (Negative); Mucus Negative (Negative); WBC 20-50 HPF (0-5)
== END 2023-09-19 11:10 | disposition home or self-care (01) ==
LOC: LBN 11:09
PROVIDERS: PCP Nurse Practitioner Family; Visit Provider Nurse Practitioner Gerontology
DX: R30.0 Dysuria (principal); B96.20 Unspecified Escherichia coli [E. coli] as the cause of diseases classified elsewhere; R82.89 Other abnormal findings on cytological and histological examination of urine
CPT/HCPCS: 87077; 81003; 81015; 87086; 87186

== ENCOUNTER 2023-11-30 02:57 | Outpatient (CLI) | payer MEDICAID, SELFPAY ==
[2023-11-30 12:26] LABS: Abs Immature Grans 0.04 10^3/uL (0.0-0.06); Absolute Basophil Count 0.07 10^3/uL (0.0-0.2); Absolute Eosinophil Count 0.31 10^3/uL (0.0-0.7); Absolute Lymphocyte Count 2.82 10^3/uL (1.2-3.4); Absolute Monocyte Count 0.77 10^3/uL (0.1-0.8); Absolute Neutrophil Count 6.89 10^3/uL (1.2-6.7); Basophils % 0.6; Eosinophils % 2.8; HCT 40.9 % (36.0-46.0); HGB 13.8 g/dL (11.2-15.7); Immature Grans % 0.4; Lymphocytes % 25.9; MCH 29.9 pg (27.0-33.0); MCHC 33.7 % (32.0-36.0); MCV 89 fL (80-95); MPV 9.6 fL (8.0-11.0); Monocytes % 7.1; Neutrophils % 63.2; Platelet Count 364 10^3/uL (130-400); RBC 4.62 10^6/uL (3.93-5.22); RDW 13.2 % (11.7-14.6); RDW-SD 43.1 fL
[2023-11-30 12:45] LABS: ALT 29 U/L (14-59); AST 11 U/L (15-37); Albumin 3.8 g/dL (3.4-5.0); Alkaline Phosphatase 93 U/L (46-116); Anion Gap 12.1 mmol/L (3-11); BUN 15 mg/dL (7-18); Bilirubin, Total 0.5 mg/dL (0.2-1.0); CO2 26.9 mmol/L (21.0-32.0); CREATININE 0.7 mg/dL (0.55-1.02); Calcium 9.8 mg/dL (8.5-10.1); Chloride 103 mmol/L (98-107); Estimated GFR 104.65 (mL/min/1.73m2); Glucose 121 mg/dL (74-106); Potassium 3.8 mmol/L (3.5-5.1); Sodium 142 mmol/L (136-145); Total Protein 7.9 g/dL (6.4-8.2); Triglyceride 100 mg/dL (<150)
== END 2023-11-30 02:58 | disposition home or self-care (01) ==
PROVIDERS: PCP Nurse Practitioner Family; Visit Provider Internal Medicine Gastroenterology
DX: K85.00 Idiopathic acute pancreatitis without necrosis or infection (principal)
CPT/HCPCS: 36415; 80053; 84478; 85025

== ENCOUNTER 2024-02-08 02:35 | Outpatient (CLI) | payer MEDICAID, SELFPAY ==
[2024-02-08 11:32] LABS: Hemoglobin A1C 8.9 % (<5.7)
[2024-02-08 11:42] LABS: Calculated LDL 132 mg/dL (<100); Cholesterol 214 mg/dL (<200); HDL Cholesterol 67 mg/dL (40-60); Triglyceride 75 mg/dL (<150)
== END 2024-02-08 02:36 | disposition home or self-care (01) ==
LOC: LBO 02:36
PROVIDERS: PCP Nurse Practitioner Family; Visit Provider Nurse Practitioner Family
DX: E11.9 Type 2 diabetes mellitus without complications (principal); Z79.4 Long term (current) use of insulin; E78.2 Mixed hyperlipidemia
CPT/HCPCS: 36415; 80061; 83036

== ENCOUNTER 2024-09-26 09:13 | Outpatient (CLI) | payer MEDICAID, SELFPAY ==
[2024-09-26 13:11] LABS: Lipase 50 U/L (<78)
== END 2024-09-26 09:14 | disposition home or self-care (01) ==
LOC: LOS 09:13
PROVIDERS: PCP Nurse Practitioner Family; Visit Provider Nurse Practitioner Family
DX: K85.90 Acute pancreatitis without necrosis or infection, unspecified (principal)
CPT/HCPCS: 36415; 83690

== ENCOUNTER 2025-01-19 12:47 | Outpatient (CLI) | payer MEDICAID, SELFPAY ==
[2025-01-21 11:45] LABS: TB Interpretation Negative (Negative); TB1 Ag minus Nil 0.03 IU/mL; TB2 Ag minus Nil 0.02 IU/mL
== END 2025-01-19 12:48 | disposition home or self-care (01) ==
LOC: LBO 12:49
PROVIDERS: PCP Nurse Practitioner Family; Visit Provider Dermatology
DX: Z79.899 Other long term (current) drug therapy (principal)
CPT/HCPCS: 36415; 86480

== ENCOUNTER 2025-03-09 17:17 | Outpatient (REF) | payer MEDICAID, SELFPAY ==
--- NOTE | 2025-03-09 11:43 | PAPFT_PTH ---
PATIENT: Cristina Guajardo LOC: [facility] U#:[id number] AGE/SX: 54/F ROOM: RE03/09/[address]: John Paul Chavez NP : 1970 BED: DIS: 03/09/2025 SPEC #: [id number] RECD: 03/10/25 13:06 STATUS: MIGDALIA CAIN #: [id number] DANIEL: 03/09/25 11:[address]: John Paul hCavez [facility]PT: [facility] Cytology RECD BY: Katharine Villanueva Tissues: 1 - CX/ENDOCX FOR PAP SMEARS Procedures: PAP THIN PREP/UVM Screening HPV DNA PROBE Comments: [id number] (CHLAMYDIA/GC)
== END 2025-03-09 17:18 | disposition home or self-care (01) ==
LOC: LBN 17:17
PROVIDERS: PCP Nurse Practitioner Family; Visit Provider Nurse Practitioner Family
DX: Z12.4 Encounter for screening for malignant neoplasm of cervix (principal)
CPT/HCPCS: 88142; 87624

== ENCOUNTER 2025-03-18 00:19 | Outpatient (CLI) | payer MEDICAID, SELFPAY ==
--- NOTE | 2025-03-18 06:45 | DI.MAMMO_ITS ---
Exam(s) MAMMO SCREENING EXAM: MAMMO SCREENING CLINICAL HISTORY: screening,Z12.39 TECHNIQUE: Mammograms were interpreted according to the usual protocol including computer analysis w [email or web address] CAD system, tomosynthesis and C-view imaging. COMPARISON: 2020 through 2022 FINDINGS: The breasts are composed of mainly fatty density , Breast Density category A. No suspicious masses or suspicious microcalcifications are seen. No skin thickening or abnormal axillary lymph nodes are seen. There has been no significant change from prior exams. IMPRESSION: BI-RADS Category 1, Negative mammogram Yearly screening mammography is recommended. Breast Density - Category A, fatty density. Breast density Category C or D implies that the patient has dense breast tissue. Dense breast tissue can make it harder to find cancer on a mammogram. Dense breast tissue is also associated with an incr eased risk of breast cancer. This information about the result of the mammogram report was provided to the patient to raise their awareness. Use this report when you speak with the patient about their risks for breast cancer, which includes their family history. At that time, you may recommend additional screening tests (Ultrasoun d or MRI) as these tests may add significant information. A negative radiographic report should not delay biopsy if a dominant or clinically suspicious mass is present. Up to ten percent of cancers are not identified on mammography. A negative report may reinforce clinical impression. Adenosis and dense breasts may obscure an underlying neoplasm. False positive reports average 6 to 10%. Patient will receive a letter notifying them of these results.
== END 2025-03-18 00:39 ==
LOC: DI 00:19
PROVIDERS: PCP Nurse Practitioner Family; Visit Provider Nurse Practitioner Family
DX: Z12.31 Encounter for screening mammogram for malignant neoplasm of breast (principal); R92.313 Mammographic fatty tissue density, bilateral breasts
CPT/HCPCS: 77063; 77067

== ENCOUNTER 2025-03-23 04:25 | Outpatient (CLI) | payer MEDICAID, SELFPAY ==
[2025-03-23 12:43] LABS: Calculated LDL 93 mg/dL (<100); Cholesterol 161 mg/dL (<200); HDL Cholesterol 55 mg/dL (>or=50); Triglyceride 69 mg/dL (<150)
== END 2025-03-23 04:26 | disposition home or self-care (01) ==
LOC: LOS 04:25
PROVIDERS: PCP Nurse Practitioner Family; Visit Provider Nurse Practitioner Family
DX: Z13.220 Encounter for screening for lipoid disorders (principal)
CPT/HCPCS: 36415; 80061

== ENCOUNTER 2025-04-01 16:31 | Emergency (ER) | payer MEDICAID, SELFPAY ==
[2025-04-01] VITALS (26 sets, daily range): BP systolic 142–197; BP diastolic 67–85; PULSE 72–98; RESP 16–20; TEMP 35.9–36.8; O2SAT 95–100
--- NOTE | 2025-04-01 17:00 | ED.GENADUL_ITS ---
Discharge Plan Disposition Patient Disposition: Home Condition: Stable Discharge Details Clinical Impression: Abdominal pain of unknown cause Primary Care Provider: John Paul Chavez ED Provider: [place] Home Meds and New Rx's Prescriptions: Continued pravastatin 40 mg tablet 40 mg PO DAILY Qty: 90 4RF Rx Instructions: increased dose/ take one tablet daily Taltz Autoinjector 80 mg/mL auto-injector 80 mg subcut Q4W (DME) pen needle, diabetic [Unifine Pentips] 32 gauge x 5/32 needle See Rx Instructions .ROUTE .MEDSUPPLY Qty: 1200 3RF Rx Instructions: 3 times daily albuterol sulfate 90 mcg/actuation HFA aerosol inhaler 2 puff inhalation Q6H PRN (Reason: shortness of breath or wheezing) Qty: 8.5 2RF (DME) blood-glucose meter 1 EACH misc 1 ea Miscellaneous DAILY Qty: 1 0RF Rx Instructions: METER TYPE _One Touch Ultra 2_ DIAGNOSIS CODE E11.9 (DME) lancets 1 EACH misc 1 ea Miscellaneous Fasting and 1-hr PP Qty: 150 4RF Rx Instructions: Use to check blood sugar fasting in the morning and 1-hour after meal is completed. FOR One Touch Ultra 2_ METER. DIAGNOSIS CODE E11.9 (DME) blood sugar diagnostic Strip 1 ea Miscellaneous Fasting and 1-hr PP Qty: 360 3RF Rx Instructions: use twice a day (DME) OneTouch Ultra Test Strip See Rx Instructions .Route Qty: 100 4RF Rx Instructions: Four times per day metformin 1,000 mg tablet 1,000 mg PO BID Qty: 180 4RF Rx Instructions: take one tablet twice a day insulin glargine [Lantus Solostar U-100 Insulin] 100 unit/mL (3 mL) insulin pen See Rx Instructions subcut BID Qty: 90 3RF Rx Instructions: 52 units every morning and 56 units every night. calcium carbonate-vitamin D3 [Calcium 500 With D] 500 mg(1,250mg) -400 unit Tablet 1 tab PO DAILY cholecalciferol (vitamin D3) [Vitamin D3] 25 mcg (1,000 unit) Capsule 1,000 unit PO DAILY Mag Glycinate 100 mg tablet 100 mg PO DAILY Discharge Instructions Instructions: Ketorolac (Systemic), Abdominal Pain, Adult ED, Flank Pain ED Additional Instructions: You were seen in the emergency department for your right flank pain of unknown cause, you have kidneys that could have been from a brief obstruction from a kidney stone that is already passed, please follow-up with either [facility] urology or your primary care provider about ordering an outpatient ultrasound of the kidneys in the next few days. There is no UTI, no sign of infection on your blood work, normal kidney, pancreas and liver enzymes, no gallstones were seen on CT. I am not sure what is causing your abdominal pain but I want you to take a aggressive regimen of Tylenol and anti-inflammatories. Please use therapeutic dosing of Tylenol (acetamenophen) & Advil (ibuprofen) in an alternating fashion as follows: Take 1000mg of Tylenol every 6 hours without missing doses- that is 4 times per day. [place] in between the Tylenol dosings, take 10mg Rx ketorolac every 6 hours as well- do this for the first 5 days until you run out then substitute in 400mg ibuprofen every [address]. The daily maximum dosing of Tylenol is 4000mg, and the daily maximum dosing of Advil is 2400mg. This is safe to do for weeks. Please note that some common cold medications & prescription pain medications may contain acetamenophen and you need to read OTC drug labels and factor that in to maximum daily dosings. Referrals: [facility] [Provider Group] John Paul Chavez NP [Primary Care Provider, Medicine] Discharge Data Discharge Date/Time-TO BE ENTERED AT DEPARTURE: 04/01/25 20:17 HPI General Date/Time Provider Initiated Documentation: 04/01/25 16:47 . HPI Narrative: 54 year-old female presents to ED today by POV/ambulating with a chief complaint of bilateral flank pain, epigastric pain she equates to her pancreas with onset on Sunday- 4 days ago. Quality described as dull aching pain, no radiation to fever, vomiting, chest pain/palpitations, shortness of breath, dizziness, dysuria, bowel incontinence, constipation, endorses nausea. Severity is described as 10/10. Palliating factors include nothing specific beyond OTCs- none taken today. Provoking factors include nothing specific. Events leading up to the incident/Associated Symptoms: Patient has spinal hardware in lumbar back, endorses history of pancreatitis. Patient not anticoagulated. Related Data Home Medications ?Medication ?Instructions ?Recorded ?Confirmed blood-glucose meter #1 ea 11/15/17 04/01/25 lancets 28 gauge #150 ea 11/15/17 04/01/25 calcium 500 mg (as 1 tab PO DAILY 01/24/2003/22 carbonate)-vitamin D3 10 mcg (400 unit) tablet (Calcium 500 With D) cholecalciferol (vitamin D3) 25 1,000 unit PO DAILY 04/01/25 mcg (1,000 unit) capsule (Vitamin D3) blood sugar diagnostic #360 strips 07/22/21 5 ixekizumab 80 mg/mL subcutaneous 80 mg subcut Q4W 05/2204/01/25 auto-injector (Taltz Autoinjector) blood sugar diagnostic (OneTouch #100 ea 07/21/2403/22 Ultra Test strips) metformin 1,000 mg tablet 1,000 mg PO BID #180 tab-cap s 07/21/24 04/01/25 insulin glargine 100 unit/mL (3 See Rx Instructions reynolds bcut BID #90 08/13/24 04/01/25 mL) subcutaneous pen (Lantus mL Solostar U-100 Insulin) albuterol sulfate 90 mcg/actuation 2 puff inhalation Q 6H PRN 01/29/25 04/01/25 aerosol inhaler shortness of breath or wheez ing #8.5 grams pen needle, diabetic 32 gauge x #1,200 ea 01/29/2509/15 5/32 (Unifine Pentips) pravastatin 40 mg tablet 40 mg PO DAILY #90 tabs 02/1904/01/25 magnesium glycinate 100 mg (as 100 mg PO DAILY 5 04/01/25 glycinate) tablet (Mag Glycinate) Previous Rx's ?Medication ?Instructions ?Recorded blood-glucose meter #1 ea 11/15/17 lancets 28 gauge #150 ea 11/15/17 blood sugar diagnostic #360 strips 07/22/21 blood sugar diagnostic (OneTouch #100 ea 07/21/24 Ultra Test strips) metformin 1,000 mg tablet 1,000 mg PO BID #180 tab-cap s 07/21/24 insulin glargine 100 unit/mL (3 See Rx Instructions reynolds bcut BID #90 08/13/24 mL) subcutaneous pen (Lantus mL Solostar U-100 Insulin) albuterol sulfate 90 mcg/actuation 2 puff inhalation Q 6H PRN 01/29/25 aerosol inhaler shortness of breath or wheez ing #8.5 grams pen needle, diabetic 32 gauge x #1,200 ea 01/29/25 (Unifine Pentips) pravastatin 40 mg tablet 40 mg PO DAILY #90 tabs 02/19 07/16 Allergies Allergy/AdvReac Type Severity Reaction Status Date / Time sitagliptin (From Januvia) Allergy Intermediate Itching Verified 04/01/25 16:47 empagliflozin (From AdvReac Severe unknown Verified 04/01/25 16:47 Jardiance) General Stated Complaint: GenMedical GILL: 3 Review of Systems All systems reviewed & are unremarkable except as noted in HPI and below Exam Narrative Exam Narrative: GENERAL APPEARANCE: Well-nourished, non-toxic, awake and alert, atraumatic, no acute distress. SKIN: Warm, pink, dry, intact, without rashes/lesions/ulcerations. HEAD: Normocephalic, atraumatic, normal hair distribution for gender/age. EYES: Normal conjunctiva, no exudates on lids/lashes. ENT: Nares patent, no circumoral cyanosis, no facial swelling NECK: Supple, trachea midline, painless cervical ROM. LUNGS/CHEST: Lungs CTA bilaterally-no rhonchi/rales/wheezes diffusely, non- labored respirations, normal A/P diameter, symmetrical expansion, no chest wall deformity HEART (CV/PV): Regular rate and rhythm without murmur, no peripheral edema, no JVD. ABDOMEN: Soft, non-distended, no guarding epigastric tenderness without rebound tenderness, negative Gilbert sign. MSK: Normal ROM, no swelling/deformity to bilateral UEs or LEs, moving all extremities without weakness, no cyanosis, spine midline without tenderness, tenderness just to the paraspinal muscles of the mid lumbar spine on both sides normal curvature. NEURO: Mental Status AAOx4 - alert to person, place, time, events No facial droop, no forehead involvement. Motor: No focal weakness - strength 5/5 in bilateral UEs and LEs, proximal and distal, symmetric. Sensory: sensation intact to light touch globally. Gait normal: patient ambulated without ataxia into ED room. PSYCH: euthymic, cooperative, pleasant, appropriate speech Course Vital Signs Vital signs: Vital Signs Temperature 36.8 C 04/01/25 16:42 Pulse 98 H 04/01/25 16:42 Respiratory Rate 20 04/01/25 16:42 Blood Pressure 142/82 H 04/01/25 16:42 Pulse Oximetry 96 04/01/25 16:42 Temperature 36.8 C 04/01/25 16:42 Temperature Source Oral 04/01/25 16:42 Pulse 98 H 04/01/25 16:42 Respiratory Rate 20 04/01/25 16:42 Respiratory Effort Normal 04/01/25 16:57 Blood Pressure 142/82 H 04/01/25 16:42 Blood Pressure Position Sitting 04/01/25 16:42 Pulse Oximetry 96 04/01/25 16:42 Oxygen Delivery Method Room Air 04/01/25 16:42 Oxygen Flow Rate 0 04/01/25 16:42 Pain Level 10 04/01/25 16:57 Medical Decision Making This dictation utilizes [id number] dictation software and may contain unedited grammatical errors. 54 year-old female presents to ED today by POV/ambulating with a chief complaint of bilateral flank pain, epigastric pain she equates to her pancreas with onset on Sunday- 4 days ago. Quality described as dull aching pain, no radiation to fever, vomiting, chest pain/palpitations, shortness of breath, dizziness, dysuria, bowel incontinence, constipation, endorses nausea. Severity is described as 10/10. Palliating factors include nothing specific beyond OTCs- none taken today. Provoking factors include nothing specific. Events leading up to the incident/Associated Symptoms: Patient has spinal hardware in lumbar back, endorses history of pancreatitis. Patients' medical history: Dysuria, T2DM, kidney stones. Family and social history: Noncontributory. Pertinent exam findings / vital signs include bilateral lumbar paraspinal tenderness, epigastric tenderness, negative Gilbert sign, stable vitals, afebrile, benign cardiopulmonary exam. Differential / pathologies of concern include lumbar paraspinal muscle tenderness, renal colic, obstructive uropathy, biliary colic. Diagnostic studies of: - CT ABD/pelvis with/without contrast, CBC, CMP, lactate, magnesium, lipase, UA. - CBC shows a mild leukocytosis of 12.6 without left shift - Lactate 2.0 - CMP shows no SHELLI, shows anion gap just above normal at 11.1, magnesium 1.7 would replete with normal p.o. intake - Lipase negative - UA shows no signs of infection or proteinuria or hematuria - CT shows no acute findings Interventions of: - 50 mg IVP ketorolac, 1 g IV APAP, 1 dose each Tylenol and Toradol to go, 1 L IVF NS. ED Course/Assessment/Plan: 54-year-old female presents with bilateral lumbar paraspinal muscle pain, epigastric pain, has significant spinal hardware in the lumbar spine, CT is negative for any obstructive uropathy or abnormality in the biliary tree, no evidence of SBO or other bowel pathology, labs are reassuring with a nonspecific mild leukocytosis, no abnormality of kidney or liver function, lipase is negative indicating no pancreatitis, UA is benign, counseled the patient on likely musculoskeletal pain and recommend therapeutic dosing of Tylenol and ibuprofen with strict return criteria for any intractable nausea or vomiting, worsening pain, neurologic abnormalities of lower extremities or bowel or urinary changes. Findings not consistent with cauda equina, pancreatitis, biliary obstruction, obstructive uropathy, sepsis, bowel pathology. Disposition of Abdominal Pain of Unknown Cause. Patient verbalized understanding of the plan and return to ED criteria and engaged in shared decision making. Medical Records Medical records reviewed: Yes I reviewed the patient's medical records. Imaging Data Radiologic Study: Attestation: I personally reviewed and interpreted this imaging study as follows: Imaging: CT Scan Radiologist's impression: Exam: CT Abdomen And Pelvis Without And With Contrast Exam date and time: 04/01/2025 18:31 Age: 54 years old Clinical indication: Abdominal pain; Other: Right kidney; Renal stone vs pancreatic pathology. HX of renal stones TECHNIQUE: Imaging protocol: Computed tomography of the abdomen and pelvis without and with contrast. Radiation optimization: All CT scans at this facility use at least one of these dose optimization techniques: automated exposure control; mA and/or kV adjustment per patient size (includes targeted exams where dose is matched to clinical indication); or iterative reconstruction. Contrast material: [id number]; Contrast volume: 75 ml; Contrast route: INTRAVENOUS (IV); COMPARISON: CT ABDOMEN PELVIS W 12/30/2021 15:29 FINDINGS: Liver: No mass on noncontrast imaging. Gallbladder and biliary ducts: No calcified stones. No gross ductal dilation on noncontrast imaging. Pancreas: No ductal dilation. No mass on noncontrast imaging. Spleen: No splenomegaly or suspicious lesions. Adrenal glands: No suspicious mass on noncontrast imaging. Kidneys and ureters: Symmetric edema around the kidneys without obstruction; could relate to medical renal disease. No nephrolithiasis or collecting system obstruction. Stomach and bowel: No obstruction. No mucosal thickening on noncontrast imaging. Appendix: No evidence of appendicitis. Intraperitoneal space: No free air. No significant fluid collection. Vasculature: No abdominal aortic aneurysm. Lymph nodes: No significantly enlarged lymph nodes on noncontrast imaging. Urinary bladder: No gross wall thickening on noncontrast imaging. Reproductive: 15 mm cystic structure in the left ovary probably slightly increased in volume since prior, could be worked up with ultrasound particularly if present is postmenopausal. Grossly normal appearance of uterus right adnexa for the patient's age on noncontrast imaging. Bones/joints: Degenerative changes in the spine. Postsurgical changes posteriorly at L4 and L5. No acute fracture or subluxation. Soft tissues: Minor infiltration left mid abdominal paramedian dermis and subcutaneous fat suggesting scarring given stability since prior. IMPRESSION: 1. No acute findings. 2. Incidental findings as described. Dictated and Authenticated by: Cherie Ochoa MD. Lab Data Lab results reviewed: Yes I reviewed the patient's lab results. Labs: Laboratory Tests Range/Units 04/01/25 04/01/25 16:55 17:06 WBC (4.4-10.8) 10^3/uL 12.66 H RBC (3.93-5.22) 10^6/uL 4.69 Hgb (11.2-15.7) g/dL 14.0 Hct (36.0-46.0) % 41.3 MCV (80-95) fL 88 MCH (27.0-33.0) pg 29.9 MCHC (32.0-36.0) % 33.9 RDW (11.7-14.6) % 13.6 Plt Count (130-400) 10^3/uL 377 MPV (8.0-11.0) fL 9.5 Immature Gran % % 0.3 Neutrophils % % 64.2 Lymphocytes % % 27.9 Monocytes % % 5.4 Eosinophils % % 1.8 Basophils % % 0.4 Nucleated RBC % (0.0-0.3) % 0.0 Absolute Neutrophils (1.2-6.7) 10^3/uL 8.13 H Absolute Lymphocytes (1.2-3.4) 10^3/uL 3.53 H Absolute Monocytes (0.1-0.8) 10^3/uL 0.68 Absolute Eosinophils (0.0-0.7) 10^3/uL 0.23 Absolute Basophils (0.0-0.2) 10^3/uL 0.05 VBG Lactate (<or=2.0) mmol/L 2.0 Sodium (136-145) mmol/L 139 Potassium (3.5-5.1) mmol/L 3.7 Chloride (98-107) mmol/L 104 Carbon Dioxide (21.0-32.0) mmol/L 23.9 Anion Gap (3-11) mmol/L 11.1 H BUN (7-18) mg/dL 16 Creatinine (0.55-1.02) mg/dL 0.8 Est GFR (CKD-EPI 2020) (mL/min/1.73m2) 88.60 Glucose (74-106) mg/dL 378 H Calcium (8.5-10.1) mg/dL 8.8 Magnesium (1.8-2.4) mg/dL 1.7 L Total Bilirubin (0.2-1.0) mg/dL 0.4 AST (15-37) U/L 9 L ALT (14-59) U/L 23 Alkaline Phosphatase (46-116) U/L 100 Total Protein (6.4-8.2) g/dL 7.7 Albumin (3.4-5.0) g/dL 3.6 Lipase (<78) U/L 24 Urine Color (Yellow) Yellow Urine Clarity (Clear) Clear Urine pH (5-8) 5.5 Ur Specific [place] (1.005-1.025) 1.015 Urine Protein (Neg-Trace) mg/dL Negative Urine Ketones (Negative) mg/dL Negative Urine Blood (Negative) Negative Urine Nitrite (Negative) Negative Urine Bilirubin (Negative) Negative Urine Urobilinogen (Up to 0.2) mg/dL 0.2 Ur Leukocyte Esterase (Negative) Negative Urine Glucose (Negative) mg/dL 500 H Quality:SDOH Health Related Social Needs: Health related social needs material hardship PFSH All Active Problems (Updated 04/01/25 @ 19:52 by POONAM Vieyra) Abdominal pain of unknown cause (Acute) Overweight (BMI 25.0-29.9) (Acute) Dysuria (Acute) Urinary urgency (Acute) Superior labrum [id number] (SLAP) tear of right shoulder (Acute) Tendinopathy of right biceps tendon (Acute) Degenerative joint disease of acromioclavicular joint (Acute) Diabetes mellitus type 2, insulin dependent (Acute) Chronic right shoulder pain (Acute) Fatigue (Acute) Leukoplakia of tongue (Acute) Kidney stone (Chronic) prior right sided ureteral stone Hyperlipidemia (Acute 01/27/09) Menorrhagia with irregular cycle (Acute 10/11/17) failed Mirena IUD failing DPMA s/p 3 or4 injections s/p endometrial ablation Psoriasis (Acute 01/07/15) /Methotrexate 12/2014 to 03/2017 Enbrel 03/2017 to 07/2017 Humira 09/2017 to : no response : Cosentyx started fup 3 months Single nabothian cyst (Acute 03/12/17) Medical History Acute pancreatitis 12/2021-elevated lipase, exam consistent with pancreatitis, normal CT, idiopathic Tachycardia Psoriasis Diabetes Dysmenorrhea Surgical History S/P endometrial ablation Spinal discectomy (~07/1998[place] [facility] [place] Family History Mother , age 78 Diabetes Essential hypertension Hyperlipidemia Stroke Heart disease Maternal Grandfather Cancer Grandmother No problems noted. Father No problems noted. Son No problems noted. Brother No problems noted. Sister No problems noted. Sister No problems noted. Sister No problems noted. 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 Pets and animals: Yes Pets and animals: dog(s) Sexually active: Yes Do you think of yourself as: straight/heterosexual Current gender identity: female What is your relationship status?: How often do you talk on the phone with friends or family?: decline to answer How often do you get together with friends or relatives?: decline to answer How often do you attend methodist or methodist services?: decline to answer Do you belong to any clubs or organized social groups?: decline to answer Panel score (0-1 are the most socially isolated patients): 1 Duration: 45-60 minutes/day Frequency: daily Elke/Confucianist: None Special elke needs: No Seatbelt use: always Helmet use: No Drive intox or ride w/intox hearse driver: No Do you feel safe at home: Yes Do you feel safe in your relationship?: Yes
[2025-04-01] MEDS: ACETAMINOPHEN 1,000 MG/100 ML BAG 400 MG IVPB (17:14)
[2025-04-01 17:15] LABS: Abs Immature Grans 0.04 10^3/uL (0.0-0.06); Absolute Basophil Count 0.05 10^3/uL (0.0-0.2); Absolute Eosinophil Count 0.23 10^3/uL (0.0-0.7); Absolute Lymphocyte Count 3.53 10^3/uL (1.2-3.4); Absolute Monocyte Count 0.68 10^3/uL (0.1-0.8); Absolute Neutrophil Count 8.13 10^3/uL (1.2-6.7); Basophils % 0.4 %; Eosinophils % 1.8 %; HCT 41.3 % (36.0-46.0); Immature Grans % 0.3 %; Lymphocytes % 27.9 %; MCH 29.9 pg (27.0-33.0); MCHC 33.9 % (32.0-36.0); MCV 88 fL (80-95); MPV 9.5 fL (8.0-11.0); Monocytes % 5.4 %; Neutrophils % 64.2 %; Platelet Count 377 10^3/uL (130-400); RBC 4.69 10^6/uL (3.93-5.22); RDW 13.6 % (11.7-14.6); WBC 12.66 10^3/uL (4.4-10.8)
[2025-04-01] MEDS: Ketorolac 15 MG/ML VIAL IVP (17:15)
[2025-04-01] MEDS: Normal Saline 1,000 ML 1000 ML IV (17:15)
[2025-04-01 17:16] LABS: Bilirubin Negative (Negative); Blood Negative (Negative); Clarity Clear (Clear); Glucose 500 mg/dL (Negative); Ketones Negative (Negative); Leukocyte Esterase Negative (Negative); Nitrite Negative (Negative); Specific Gravity 1.015 (1.005-1.025); Urobilinogen 0.2 mg/dL (Up to 0.2); pH 5.5 (5-8)
[2025-04-01 17:38] LABS: ALT 23 U/L (14-59); AST 9 U/L (15-37); Albumin 3.6 g/dL (3.4-5.0); Alkaline Phosphatase 100 U/L (46-116); Anion Gap 11.1 mmol/L (3-11); BUN 16 mg/dL (7-18); Bilirubin, Total 0.4 mg/dL (0.2-1.0); CO2 23.9 mmol/L (21.0-32.0); CREATININE 0.8 mg/dL (0.55-1.02); Calcium 8.8 mg/dL (8.5-10.1); Chloride 104 mmol/L (98-107); Glucose 378 mg/dL (74-106); Lipase 24 U/L (<78); Magnesium 1.7 mg/dL (1.8-2.4); Potassium 3.7 mmol/L (3.5-5.1); Sodium 139 mmol/L (136-145); Total Protein 7.7 g/dL (6.4-8.2)
[2025-04-01] MEDS: Omnipaque 350 MG/ML 100 ML BTL IJ (18:47)
[2025-04-01] MEDS: Normal Saline - Diluent 50 ML VIAL IJ (18:48)
--- NOTE | 2025-04-01 18:53 | DI.CT_ITS ---
Exam(s) CT ABDOMEN PELVIS WO/W EXAM: CT ABDOMEN PELVIS WO/W CLINICAL HISTORY: renal stone vs pancreatic pathology. TECHNIQUE: Imaging Protocol: Axial computed tomography images with coronal and sagittal reformatted images were created and reviewed CONTRAST MATERIAL: Intravenous: Omnipaque-350 75cc Oral: None COMPARISON: CT CT ABDOMEN PELVIS W from 12/30/2021 FINDINGS: VISUALIZED LUNG BASES: No nodules nor pleural effusions evident. ABDOMEN: There is no ascites. LIVER: There are no focal hepatic lesions evident. No dilated intrahepatic ducts. GALLBLADDER/BILIARY: No obvious gallbladder pathology. CBD is not dilated. PANCREAS: No evidence of pancreatic mass nor dilatation of the pancreatic duct. SPLEEN: Spleen is not enlarged. No obvious intrasplenic lesions. Splenic and portal veins are patent. ADRENALS: There are no significant adrenal masses. KIDNEYS:No cysts evident. No solid renal masses. No calculi nor hydronephrosis.. ABDOMINAL AORTA: Abdominal aorta is not enlarged. LYMPH NODES:There is no retroperitoneal nor paraaortic adenopathy. ABDOMINAL WALL: There is skin thickening and subcutaneous streaking over the anterior left abdominal wall but no drainable fluid collection. This may be an injection site. However, there are no similar findings elsewhere in the anterior abdominal wall subcutaneous fat. GI: There is no evidence of bowel obstruction, free air, nor abscess. PELVIS: GI: No evidence of appendicitis.No evidence of sigmoid diverticulitis. LYMPH NODES: There is no intrapelvic nor inguinal adenopathy. REPRODUCTIVE: There is mildly enhancing fibroid in left side of the uterus measuring approximately 1.7 x 1.6 cm. Small cysts in the ovaries left side noted measuring 1.5 x 1.5 cm. URINARY BLADDER: No calculi nor obvious masses evident OSSEOUS: No fractures and no significant osseous lesions. Chronic advanced disc space narrowing at the L4-5 level. Also laminectomies in the lower lumbar spine. No listhesis. IMPRESSION: 1. No acute findings in the abdomen and pelvis. 2. There is a 1.5 cm cystic structure in the left ovary. If clinically indicated can be further followed with ultrasound. 3. Skin thickening and left side subcutaneous fat streaking. Either related to injection site and/or focal cellulitis. There is no drainable subcutaneous abscess at this location. 4. Other findings as above. Preliminary virtual Radiology report was reviewed. RADIATION DOSE DELIVERED: 1,366.28mGy.cm Total DLP DATA REPOSITORY: All CT scans at this facility are submitted to the National Radiology Data Registry (NRDR) Dose Index Registry (DIR) with the [employer] [place] [employer] (ACR). RADIATION OPTIMIZATION: All CT scans at this facility use at least one of these dose optimization techniques: automated exposure control; mA and/or kV adjustment per patient size (includes targeted exams where dose is matched to clinical indication); or iterative reconstruction.
--- NOTE | 2025-04-01 19:26 | DI.VRAD_ITS ---
PROCEDURE INFORMATION: Exam: CT Abdomen And Pelvis Without And With Contrast Exam date and time: 04/01/2025 18:31 Age: 54 years old Clinical indication: Abdominal pain; Other: Right kidney; Renal stone vs pancreatic pathology. HX of renal stones TECHNIQUE: Imaging protocol: Computed tomography of the abdomen and pelvis without and with contrast. Radiation optimization: All CT scans at this facility use at least one of these dose optimization techniques: automated exposure control; mA and/or kV adjustment per patient size (includes targeted exams where dose is matched to clinical indication); or iterative reconstruction. Contrast material: [id number]; Contrast volume: 75 ml; Contrast route: INTRAVENOUS (IV); COMPARISON: CT ABDOMEN PELVIS W 12/30/2021 15:29 FINDINGS: Liver: No mass on noncontrast imaging. Gallbladder and biliary ducts: No calcified stones. No gross ductal dilation on noncontrast imaging. Pancreas: No ductal dilation. No mass on noncontrast imaging. Spleen: No splenomegaly or suspicious lesions. Adrenal glands: No suspicious mass on noncontrast imaging. Kidneys and ureters: Symmetric edema around the kidneys without obstruction; could relate to medical renal disease. No nephrolithiasis or collecting system obstruction. Stomach and bowel: No obstruction. No mucosal thickening on noncontrast imaging. Appendix: No evidence of appendicitis. Intraperitoneal space: No free air. No significant fluid collection. Vasculature: No abdominal aortic aneurysm. Lymph nodes: No significantly enlarged lymph nodes on noncontrast imaging. Urinary bladder: No gross wall thickening on noncontrast imaging. Reproductive: 15 mm cystic structure in the left ovary probably slightly increased in volume since prior, could be worked up with ultrasound particularly if present is postmenopausal. Grossly normal appearance of uterus right adnexa for the patient's age on noncontrast imaging. Bones/joints: Degenerative changes in the spine. Postsurgical changes posteriorly at L4 and L5. No acute fracture or subluxation. Soft tissues: Minor infiltration left mid abdominal paramedian dermis and subcutaneous fat suggesting scarring given stability since prior. IMPRESSION: 1. No acute findings. 2. Incidental findings as described. Dictated and Authenticated by: Cherie Ochoa MD. Orderin Christine Bethea MD
[2025-04-01] MEDS: Acetaminophen 500 MG TAB 1000 MG PO (20:09)
[2025-04-01] MEDS: Ketorolac 10 MG TAB PO (20:09)
== END 2025-04-01 20:17 | disposition home or self-care (01) ==
PROVIDERS: Emergency Provider Physician Assistant; PCP Nurse Practitioner Family
DX: R10.9 Unspecified abdominal pain (principal); R10.13 Epigastric pain; E11.9 Type 2 diabetes mellitus without complications; E78.5 Hyperlipidemia, unspecified; F17.210 Nicotine dependence, cigarettes, uncomplicated; Z79.4 Long term (current) use of insulin
CPT/HCPCS: 36415; 80053; 83690; 96361; 96365; 96375; 99285; 74178; 81003; 83605; 83735; 85025; J0131; J1885; J3490

== ENCOUNTER 2025-04-23 01:58 | Outpatient (CLI) | payer MEDICAID, SELFPAY ==
--- NOTE | 2025-04-23 08:00 | DI.US_ITS ---
Exam(s) US RENAL EXAM: US RENAL CLINICAL HISTORY: kidney stone,n20.0. TECHNIQUE: Lyon scale imaging and color doppler were used. COMPARISON: CT CT ABDOMEN PELVIS WO/W from 04/01/2025 FINDINGS: Right kidney: 11.5cm Echogenicity: Normal Hydronephrosis: No Cyst or mass: No Nephrolithiasis: No Left kidney: 13.5cm Echogenicity: Normal Hydronephrosis: No Cyst or mass: No Nephrolithiasis: No Bladder:Normal. Both ureteral jets were visualized. Prevoid vol:459 cc Postvoid vol:4 cc IMPRESSION: Negative renal ultrasound. DATA REPOSITORY:
== END 2025-04-23 02:18 ==
LOC: DI 01:58
PROVIDERS: PCP Nurse Practitioner Family; Visit Provider Nurse Practitioner Family
DX: N20.0 Calculus of kidney (principal)
CPT/HCPCS: 76770

== ENCOUNTER 2025-05-11 00:30 | Outpatient (CLI) | payer MEDICAID, SELFPAY ==
--- NOTE | 2025-05-11 07:15 | DI.US_ITS ---
Exam(s) US PELVIS TRANSVAGINAL EXAM: US PELVIS TRANSVAGINAL CLINICAL HISTORY: anatomy,PELVIC PAIN,R10.2 TECHNIQUE: Transabdominal and transvaginal imaging was performed using standard protocol. COMPARISON: CT CT ABDOMEN PELVIS WO/W from 04/01/2025 FINDINGS: UTERUS: Anteverted. 5.2 x 2.3 x 3 point cm Endometrium: 5 mm some fluid in lower uterine segment. Myometrium: 13 millimeter fibroid left side of fundus. Cervix: Nabothian cyst. OVARIES: Right: Cyst or mass: None. Left: Cyst or mass: None. DOPPLER: Color: Symmetric and uniform flow to both ovaries. No hyperemia. CUL-DE-SAC: Free fluid: None. IMPRESSION: 1. Small fundal fibroid.. 2. Unremarkable bilateral ovaries. DATA REPOSITORY:
== END 2025-05-11 00:50 ==
LOC: DI 00:30
PROVIDERS: PCP Nurse Practitioner Family; Visit Provider Obstetrics & Gynecology
DX: R10.2 Pelvic and perineal pain (principal)
CPT/HCPCS: 76830; 76856

== ENCOUNTER 2025-06-12 15:05 | Emergency (ER) | payer MEDICAID, SELFPAY ==
[2025-06-12 15:06] VITALS: BP 164/101; PULSE 114; RESP 16; TEMP 36.9; O2SAT 98
--- NOTE | 2025-06-12 15:15 | DI.US_ITS ---
Exam(s) US ABDOMEN RENAL EXAM: US ABDOMEN RENAL CLINICAL HISTORY: biliary colic, flank pain TECHNIQUE: Ultrasound abdomen performed using standard protocol. COMPARISON: CT CT ABDOMEN PELVIS WO/W from 04/01/2025 US US RENAL from 04/23/2025 FINDINGS: LIVER: Mildly enlarged at 18.4 cm in length. Mildly increased echogenicity consistent with mild hepatic steatosis. No focal liver lesions are seen. GALLBLADDER: No evidence of cholelithiasis. No evidence of wall thickening. No pericholecystic fluid identified. ZAPATA'S SIGN: Negative. BILIARY SYSTEM: No intrahepatic or extrahepatic biliary ductal dilation. KIDNEYS: Kidneys are symmetric in size. No evidence of renal calculi. No evidence of hydronephrosis. No renal mass or cyst identified. PANCREAS: Normal where visualized. SPLEEN: Not enlarged. ABDOMINAL AORTA AND IVC: Visualized portions normal caliber. ASCITES: None seen. Bladder: Unremarkable. Pre void bladder volume 29 cc. Postvoid residual is 0 cc. Both ureteral jets were visualized. IMPRESSION: Mildly enlarged liver with mild hepatic steatosis. No acute abnormality. DATA REPOSITORY:
[2025-06-12 15:44] LABS: Abs Immature Grans 0.03 10^3/uL (0.0-0.06); HCT 39.5 % (36.0-46.0); HGB 13.5 g/dL (11.2-15.7); Immature Grans % 0.2 %; MCH 29.6 pg (27.0-33.0); MCHC 34.2 % (32.0-36.0); MCV 87 fL (80-95); MPV 10.1 fL (8.0-11.0); Platelet Count 297 10^3/uL (130-400); RBC 4.56 10^6/uL (3.93-5.22); RDW 13.2 % (11.7-14.6); RDW-SD 41.4 fL; WBC 12.51 10^3/uL (4.4-10.8)
[2025-06-12 15:59] LABS: Glucose 500 mg/dL (Negative)
[2025-06-12 16:03] VITALS: BP 164/101; PULSE 114; RESP 16; TEMP 36.9; O2SAT 98
[2025-06-12 16:04] LABS: ALT 27 U/L (14-59); AST 13 U/L (15-37); Albumin 3.8 g/dL (3.4-5.0); Alkaline Phosphatase 92 U/L (46-116); Anion Gap 11.5 mmol/L (3-11); BUN 19 mg/dL (7-18); Bilirubin, Direct 0.1 mg/dL (0.0-0.2); Bilirubin, Total 0.5 mg/dL (0.2-1.0); CO2 23.5 mmol/L (21.0-32.0); Calcium 9.6 mg/dL (8.5-10.1); Chloride 100 mmol/L (98-107); Estimated GFR 88.60 (mL/min/1.73m2); Glucose 357 mg/dL (74-106); Lipase 104 U/L (<78); Potassium 4.0 mmol/L (3.5-5.1); Sodium 135 mmol/L (136-145); Total Protein 7.6 g/dL (6.4-8.2); Troponin I 7 ng/L (<or=51)
[2025-06-12 16:16] LABS: C & S Indicated? No; RBC 0-2 HPF (0-2); WBC Negative HPF (0-5)
[2025-06-12] MEDS: ACETAMINOPHEN 1,000 MG/100 ML BAG 400 MG IVPB (16:55)
[2025-06-12] MEDS: Normal Saline 1,000 ML 1000 ML IV (16:56)
--- NOTE | 2025-06-12 17:55 | W.ED.GENAD ---
Discharge Plan Disposition Patient Disposition: Home Condition: Stable Discharge Details Clinical Impression: Pancreatitis Primary Care Provider: John Paul Chavez ED Provider: [place] Home Meds and New Rx's Prescriptions: Continued pravastatin 40 mg tablet 40 mg PO DAILY Qty: 90 4RF Rx Instructions: increased dose/ take one tablet daily omega-3 fatty acids 1,000 mg capsule 1,000 mg PO DAILY Taltz Autoinjector 80 mg/mL auto-injector 80 mg subcut Q4W (DME) pen needle, diabetic [Unifine Pentips] 32 gauge x 5/32 needle See Rx Instructions .ROUTE .MEDSUPPLY Qty: 1200 3RF Rx Instructions: 3 times daily (DME) blood-glucose meter 1 EACH misc 1 ea Miscellaneous DAILY Qty: 1 0RF Rx Instructions: METER TYPE _One Touch Ultra 2_ DIAGNOSIS CODE E11.9 (DME) lancets 1 EACH misc 1 ea Miscellaneous Fasting and 1-hr PP Qty: 150 4RF Rx Instructions: Use to check blood sugar fasting in the morning and 1-hour after meal is completed. FOR One Touch Ultra 2_ METER. DIAGNOSIS CODE E11.9 (DME) blood sugar diagnostic Strip 1 ea Miscellaneous Fasting and 1-hr PP Qty: 360 3RF Rx Instructions: use twice a day (DME) OneTouch Ultra Test Strip See Rx Instructions .Route Qty: 100 4RF Rx Instructions: Four times per day metformin 1,000 mg tablet 1,000 mg PO BID Qty: 180 4RF Rx Instructions: take one tablet twice a day insulin glargine [Lantus Solostar U-100 Insulin] 100 unit/mL (3 mL) insulin pen See Rx Instructions subcut BID Qty: 90 3RF Rx Instructions: 52 units every morning and 56 units every night. albuterol sulfate 90 mcg/actuation HFA aerosol inhaler 2 puff inhalation Q6H PRN (Reason: shortness of breath or wheezing) Qty: 8.5 2RF calcium carbonate-vitamin D3 [Calcium 500 With D] 500 mg(1,250mg) -400 unit Tablet 1 tab PO DAILY cholecalciferol (vitamin D3) [Vitamin D3] 25 mcg (1,000 unit) Capsule 1,000 unit PO DAILY No Action tramadol 50 mg tablet 50 mg PO BID PRN Rx Instructions: 1-2 tabs po bid prn abd pain tramadol 50 mg tablet 100 mg PO BID PRN (Reason: pain) Qty: 14 0RF Rx Instructions: May use 1 - 2 tabs per dose Discharge Instructions Instructions: Acute pancreatitis Additional Instructions: You were seen in the emergency department for your pancreatitis, your lipase is very mildly elevated just above normal, it could have been worse in the past few days but looks to be on the mend, clear fluid diet per pancreatitis treatment, we offered you some pain medicine but you improved with Tylenol and declined opiates, please just take continue Tylenol dosings, your story was more suspicious for concurrent gastritis with pain almost immediately after eating, please take Pepcid twice per day for a few weeks for trial of relief, you may follow-up with your primary care provider for an MRCP study Referrals: John Paul Chavez NP [Primary Care Provider, Medicine] Discharge Data Discharge Date/Time-TO BE ENTERED AT DEPARTURE: 06/12/25 18:20 HPI General Date/Time Provider Initiated Documentation: 06/12/25 15:18. HPI Narrative: 54 year-old female presents to ED today by POV/ambulating with a chief complaint of possible pancreatitis with onset over the pains couple days. Quality described as central upper abdominal pain, nausea and vomiting, diarrhea the past couple days, no radiation to hematemesis, black/tarry stools, hematochezia, shortness of breath, chest pain, diaphoresis, fever, cough, shortness of breath. Severity is described as moderate to severe. Palliating factors include initiated clear fluid diet. Provoking factors include indigestion about 25 to 30 minutes after eating. Patient not anticoagulated. Related Data Home Medications ?Medication ?Instructions ?Recorded ?Confirmed blood-glucose meter #1 ea 11/15/17 06/15/25 lancets 28 gauge #150 ea 11/15/17 06/15/25 calcium 500 mg (as 1 tab PO DAILY 01/24/20 06/15/25 carbonate)-vitamin D3 10 mcg (400 unit) tablet (Calcium 500 With D) cholecalciferol (vitamin D3) 25 1,000 unit PO DAILY 01/24/20 06/15/25 mcg (1,000 unit) capsule (Vitamin D3) blood sugar diagnostic #360 strips 07/22/21 06/15/25 ixekizumab 80 mg/mL subcutaneous 80 mg subcut Q4W 06/02/24 06/15/25 auto-injector (Taltz Autoinjector) blood sugar diagnostic (OneTouch #100 ea 07/21/24 06/15/25 Ultra Test strips) metformin 1,000 mg tablet 1,000 mg PO BID #180 tab-caps 07/21/24 06/15/25 insulin glargine 100 unit/mL (3 See Rx Instructions subcut BID #90 08/13/24 06/15/25 mL) subcutaneous pen (Lantus mL Solostar U-100 Insulin) pen needle, diabetic 32 gauge x #1,200 ea 01/29/25 06/15/25 (Unifine Pentips) pravastatin 40 mg tablet 40 mg PO DAILY #90 tabs 03/09/25 06/15/25 albuterol sulfate 90 mcg/actuation 2 puff inhalation Q6H PRN 05/04/25 06/15/25 aerosol inhaler shortness of breath or wheezing #8.5 grams omega-3 fatty acids 1,000 mg 1,000 mg PO DAILY 05/04/25 06/15/25 capsule tramadol 50 mg tablet 50 mg PO BID PRN 06/15/25 06/15/25 tramadol 50 mg tablet 100 mg (2 x 50 mg) PO BID PRN pain 06/15/25 06/15/25 #14 tabs Previous Rx's ?Medication ?Instructions ?Recorded blood-glucose meter #1 ea 11/15/17 lancets 28 gauge #150 ea 11/15/17 blood sugar diagnostic #360 strips 07/22/21 blood sugar diagnostic (OneTouch #100 ea 07/21/24 Ultra Test strips) metformin 1,000 mg tablet 1,000 mg PO BID #180 tab-caps 07/21/24 insulin glargine 100 unit/mL (3 See Rx Instructions subcut BID #90 08/13/24 mL) subcutaneous pen (Lantus mL Solostar U-100 Insulin) pen needle, diabetic 32 gauge x #1,200 ea 01/29/25 (Unifine Pentips) pravastatin 40 mg tablet 40 mg PO DAILY #90 tabs 03/09/25 albuterol sulfate 90 mcg/actuation 2 puff inhalation Q6H PRN 05/04/25 aerosol inhaler shortness of breath or wheezing #8.5 grams tramadol 50 mg tablet 100 mg (2 x 50 mg) PO BID PRN pain 06/15/25 #14 tabs Allergies Allergy/AdvReac Type Severity Reaction Status Date / Time sitagliptin (From Januvia) Allergy Intermediate Itching Verified 06/15/25 15:53 empagliflozin (From AdvReac Intermediate Other (See Verified 06/15/25 15:53 Jardiance) Comment) General Stated Complaint: Abd Prob GILL: 3 Review of Systems All systems reviewed & are unremarkable except as noted in HPI and below Exam Narrative Exam Narrative: GENERAL APPEARANCE: Well-nourished, non-toxic, awake and alert, atraumatic, no acute distress. SKIN: Warm, pink, dry, intact, without rashes/lesions/ulcerations. HEAD: Normocephalic, atraumatic, normal hair distribution for gender/age. EYES: Normal conjunctiva, no exudates on lids/lashes. ENT: Nares patent, no circumoral cyanosis, no facial swelling NECK: Supple, trachea midline, painless cervical ROM. LUNGS/CHEST: Lungs CTA bilaterally- no rhonchi/rales/wheezes diffusely, non-labored respirations, normal A/P diameter, symmetrical expansion, no chest wall deformity HEART (CV/PV): Regular rate and rhythm without murmur, no peripheral edema, no JVD. ABDOMEN: Soft, non-distended, no guarding, RUQ/epigastric tenderness, negative Gilbert's MSK: Normal ROM, no swelling/deformity to bilateral UEs or LEs, moving all extremities without weakness, no cyanosis, spine midline without tenderness, normal curvature. NEURO: Mental Status AAOx4 - alert to person, place, time, events No facial droop, no forehead involvement. Motor: No focal weakness - strength 5/5 in bilateral UEs and LEs, proximal and distal, symmetric. Sensory: sensation intact to light touch globally. Gait normal: patient ambulated without ataxia into ED room. PSYCH: euthymic, cooperative, pleasant, appropriate speech Course Vital Signs Vital signs: Vital Signs Temperature 36.9 C 06/12/25 15:06 Pulse 114 H 06/12/25 15:06 Respiratory Rate 16 06/12/25 15:06 Blood Pressure 164/101 H 06/12/25 15:06 Pulse Oximetry 98 06/12/25 15:06 Temperature 36.9 C 06/12/25 16:03 Temperature Source Oral 06/12/25 16:03 Pulse 114 H 06/12/25 16:03 Respiratory Rate 16 06/12/25 16:03 Blood Pressure 164/101 H 06/12/25 16:03 Blood Pressure Position Sitting 06/12/25 16:03 Pulse Oximetry 98 06/12/25 16:03 Oxygen Delivery Method Room Air 06/12/25 16:03 Oxygen Flow Rate 0 06/12/25 16:03 Pain Level 9 06/12/25 16:03 Lab/Test Results Lab/Test Results: Laboratory Tests Range/Units 06/12/25 06/12/25 15:34 15:49 WBC (4.4-10.8) 10^3/uL 12.51 H RBC (3.93-5.22) 10^6/uL 4.56 Hgb (11.2-15.7) g/dL 13.5 Hct (36.0-46.0) % 39.5 MCV (80-95) fL 87 MCH (27.0-33.0) pg 29.6 MCHC (32.0-36.0) % 34.2 RDW (11.7-14.6) % 13.2 Plt Count (130-400) 10^3/uL 297 MPV (8.0-11.0) fL 10.1 Immature Gran % % 0.2 Neutrophils % % 59.5 Lymphocytes % % 32.2 Monocytes % % 6.2 Eosinophils % % 1.3 Basophils % % 0.6 Nucleated RBC % (0.0-0.3) % 0.0 Absolute Neutrophils (1.2-6.7) 10^3/uL 7.44 H Absolute Lymphocytes (1.2-3.4) 10^3/uL 4.03 H Absolute Monocytes (0.1-0.8) 10^3/uL 0.78 Absolute Eosinophils (0.0-0.7) 10^3/uL 0.16 Absolute Basophils (0.0-0.2) 10^3/uL 0.08 VBG Lactate (<or=2.0) mmol/L 1.9 Sodium (136-145) mmol/L 135 L Potassium (3.5-5.1) mmol/L 4.0 Chloride (98-107) mmol/L 100 Carbon Dioxide (21.0-32.0) mmol/L 23.5 Anion Gap (3-11) mmol/L 11.5 H BUN (7-18) mg/dL 19 H Creatinine (0.55-1.02) mg/dL 0.8 Est GFR (CKD-EPI 2020) (mL/min/1.73m2) 88.60 Glucose (74-106) mg/dL 357 H Calcium (8.5-10.1) mg/dL 9.6 Total Bilirubin (0.2-1.0) mg/dL 0.5 Conjugated Bilirubin (0.0-0.2) mg/dL 0.1 AST (15-37) U/L 13 L ALT (14-59) U/L 27 Alkaline Phosphatase (46-116) U/L 92 Troponin I (<or=51) ng/L 7 Total Protein (6.4-8.2) g/dL 7.6 Albumin (3.4-5.0) g/dL 3.8 Lipase (<78) U/L 104 H Urine Color (Yellow) Yellow Urine Clarity (Clear) Clear Urine pH (5-8) 5.5 Ur Specific [place] (1.005-1.025) 1.020 Urine Protein (Neg-Trace) mg/dL Negative Urine Ketones (Negative) mg/dL Trace H Urine Blood (Negative) Trace-intact H Urine Nitrite (Negative) Negative Urine Bilirubin (Negative) Negative Urine Urobilinogen (Up to 0.2) mg/dL 0.2 Ur Leukocyte Esterase (Negative) Negative Urine RBC (0-2) HPF 0-2 Urine WBC (0-5) HPF Negative Ur Epithelial Cells (Negative) HPF Rare Urine Crystals (Negative) HPF Negative Urine Bacteria (Negative) HPF Negative Urine Mucus (Negative) Negative Ur Culture Indicated? No Urine Glucose (Negative) mg/dL 500 H Medical Decision Making This dictation utilizes [id number] dictation software and may contain unedited grammatical errors. 54 year-old female presents to ED today by POV/ambulating with a chief complaint of possible pancreatitis with onset over the pains couple days. Quality described as central upper abdominal pain, nausea and vomiting, diarrhea the past couple days, no radiation to hematemesis, black/tarry stools, hematochezia, shortness of breath, chest pain, diaphoresis, fever, cough, shortness of breath. Severity is described as moderate to severe. Palliating factors include initiated clear fluid diet. Provoking factors include indigestion about 25 to 30 minutes after eating. Patients' medical history: Pancreatitis, diabetes, thickened endometrium, kidney stones, hyperlipidemia. Family and social history: Denies EtOH intake. Pertinent exam findings / vital signs include epigastric tenderness, no overt Gilbert sign, lungs CTA, neuro intact, nontoxic and afebrile. Differential / pathologies of concern include pancreatitis, gastritis, SBO, biliary colic, renal colic. Diagnostic studies of: -CBC, BMP, lactate, liver panel, troponin, lipase, UA, ultrasound right upper quadrant - CBC shows a mild nonspecific leukocytosis at 12.1 without left shift - Lactate negative do not suspect sepsis - CMP is unremarkable without actionable abnormality - Conjugated bilirubin shows no obstructive pattern - Troponin negative - Lipase is very mildly elevated at 104 - UA shows no signs of UTI - Ultrasound shows no dilation of the common bile duct, no abnormality of the biliary tree save for known chronic mildly enlarged liver with fatty liver Interventions of: -1 L IVF NS, 1 g IV Tylenol, patient refused opiates. ED Course/Assessment/Plan: 54-year-old female presents with mild pancreatitis, lipase slightly above normal, has a history which shows discomfort closer after p.o. intake then I would suspect from pancreatitis question whether she also has, current peptic ulcer disease or gastritis, she has had EGDs. Counseled the patient on clear fluid diet and pain control, recommend she follow-up with her primary care provider for MRCP, strict return criteria for any intractable nausea or vomiting. Findings not consistent with biliary obstruction, perforated viscus, sepsis, inability to tolerate p.o. intake. Disposition of Pancreatitis. Patient verbalized understanding of the plan and return to ED criteria and engaged in shared decision making. Medical Records Medical records reviewed: Yes I reviewed the patient's medical records. Imaging Data Radiologic Study: Attestation: I personally reviewed and interpreted this imaging study as follows: Imaging: Ultrasound Radiologist's impression: EXAM: US ABDOMEN RENAL CLINICAL HISTORY: biliary colic, flank pain TECHNIQUE: Ultrasound abdomen performed using standard protocol. COMPARISON: CT CT ABDOMEN PELVIS WO/W from 04/01/2025 US US RENAL from 04/23/2025 FINDINGS: LIVER: Mildly enlarged at 18.4 cm in length. Mildly increased echogenicity consistent with mild hepatic steatosis. No focal liver lesions are seen. GALLBLADDER: No evidence of cholelithiasis. No evidence of wall thickening. No pericholecystic fluid identified. GILBERT'S SIGN: Negative. BILIARY SYSTEM: No intrahepatic or extrahepatic biliary ductal dilation. KIDNEYS: Kidneys are symmetric in size. No evidence of renal calculi. No evidence of hydronephrosis. No renal mass or cyst identified. PANCREAS: Normal where visualized. SPLEEN: Not enlarged. ABDOMINAL AORTA AND IVC: Visualized portions normal caliber. ASCITES: None seen. Bladder: Unremarkable. Pre void bladder volume 29 cc. Postvoid residual is 0 cc. Both ureteral jets were visualized. IMPRESSION: Mildly enlarged liver with mild hepatic steatosis. No acute abnormality. Lab Data Lab results reviewed: Yes I reviewed the patient's lab results. Labs: Laboratory Tests Range/Units 06/12/25 06/12/25 15:34 15:49 WBC (4.4-10.8) 10^3/uL 12.51 H RBC (3.93-5.22) 10^6/uL 4.56 Hgb (11.2-15.7) g/dL 13.5 Hct (36.0-46.0) % 39.5 MCV (80-95) fL 87 MCH (27.0-33.0) pg 29.6 MCHC (32.0-36.0) % 34.2 RDW (11.7-14.6) % 13.2 Plt Count (130-400) 10^3/uL 297 MPV (8.0-11.0) fL 10.1 Immature Gran % % 0.2 Neutrophils % % 59.5 Lymphocytes % % 32.2 Monocytes % % 6.2 Eosinophils % % 1.3 Basophils % % 0.6 Nucleated RBC % (0.0-0.3) % 0.0 Absolute Neutrophils (1.2-6.7) 10^3/uL 7.44 H Absolute Lymphocytes (1.2-3.4) 10^3/uL 4.03 H Absolute Monocytes (0.1-0.8) 10^3/uL 0.78 Absolute Eosinophils (0.0-0.7) 10^3/uL 0.16 Absolute Basophils (0.0-0.2) 10^3/uL 0.08 VBG Lactate (<or=2.0) mmol/L 1.9 Sodium (136-145) mmol/L 135 L Potassium (3.5-5.1) mmol/L 4.0 Chloride (98-107) mmol/L 100 Carbon Dioxide (21.0-32.0) mmol/L 23.5 Anion Gap (3-11) mmol/L 11.5 H BUN (7-18) mg/dL 19 H Creatinine (0.55-1.02) mg/dL 0.8 Est GFR (CKD-EPI 2020) (mL/min/1.73m2) 88.60 Glucose (74-106) mg/dL 357 H Calcium (8.5-10.1) mg/dL 9.6 Total Bilirubin (0.2-1.0) mg/dL 0.5 Conjugated Bilirubin (0.0-0.2) mg/dL 0.1 AST (15-37) U/L 13 L ALT (14-59) U/L 27 Alkaline Phosphatase (46-116) U/L 92 Troponin I (<or=51) ng/L 7 Total Protein (6.4-8.2) g/dL 7.6 Albumin (3.4-5.0) g/dL 3.8 Lipase (<78) U/L 104 H Urine Color (Yellow) Yellow Urine Clarity (Clear) Clear Urine pH (5-8) 5.5 Ur Specific [place] (1.005-1.025) 1.020 Urine Protein (Neg-Trace) mg/dL Negative Urine Ketones (Negative) mg/dL Trace H Urine Blood (Negative) Trace-intact H Urine Nitrite (Negative) Negative Urine Bilirubin (Negative) Negative Urine Urobilinogen (Up to 0.2) mg/dL 0.2 Ur Leukocyte Esterase (Negative) Negative Urine RBC (0-2) HPF 0-2 Urine WBC (0-5) HPF Negative Ur Epithelial Cells (Negative) HPF Rare Urine Crystals (Negative) HPF Negative Urine Bacteria (Negative) HPF Negative Urine Mucus (Negative) Negative Ur Culture Indicated? No Urine Glucose (Negative) mg/dL 500 H Quality:SDOH Health Related Social Needs: Health related social needs material hardship PFSH All Active Problems Pancreatitis (Chronic) Thickened endometrium (Acute) Pelvic pain (Acute) Overweight (BMI 25.0-29.9) (Acute) Dysuria (Acute) Urinary urgency (Acute) Superior labrum [id number] (SLAP) tear of right shoulder (Acute) Tendinopathy of right biceps tendon (Acute) Degenerative joint disease of acromioclavicular joint (Acute) Diabetes mellitus type 2, insulin dependent (Acute) Chronic right shoulder pain (Acute) Fatigue (Acute) Leukoplakia of tongue (Acute) Kidney stone (Chronic) prior right sided ureteral stone Hyperlipidemia (Acute 01/27/09) Psoriasis (Acute 01/07/15) /Methotrexate 12/2014 to 03/2017 Enbrel 03/2017 to 07/2017 Humira 09/2017 to : no response : Cosentyx started fup 3 months Medical History Single nabothian cyst (03/12/17) Menorrhagia with irregular cycle (10/11/17) failed Mirena IUD failing DPMA s/p 3 or4 injections s/p endometrial ablation Acute pancreatitis 12/2021-elevated lipase, exam consistent with pancreatitis, normal CT, idiopathic Tachycardia Psoriasis Diabetes Dysmenorrhea Surgical History History of endometrial ablation S/P endometrial ablation Spinal discectomy (~07/1998) [facility] [place] Family History Mother , age 78 Diabetes Essential hypertension Hyperlipidemia Stroke Heart disease Maternal Grandfather Cancer Grandmother No problems noted. Father No problems noted. Son No problems noted. Brother No problems noted. Sister No problems noted. Sister No problems noted. Sister No problems noted. 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 Pets and animals: Yes Pets and animals: dog(s) Sexually active: Yes Do you think of yourself as: straight/heterosexual Current gender identity: female What is your relationship status?: How often do you talk on the phone with friends or family?: decline to answer How often do you get together with friends or relatives?: decline to answer How often do you attend samaritan or druze services?: decline to answer Do you belong to any clubs or organized social groups?: decline to answer Panel score (0-1 are the most socially isolated patients): 1 Duration: 45-60 minutes/day Frequency: daily Elke/Denominational: None Special elke needs: No Seatbelt use: always Helmet use: No Drive intox or ride w/intox seasonal driver: No Do you feel safe at home: Yes Do you feel safe in your relationship?: Yes History History 1 Para 1 Hx # Term Pregnancies 1 Multiple births Hx # Pregnancies Ectopic pregnancies AB induced Hx Number of Living Children 1 AB spontaneous Past Pregnancies Del. Date GA/Weeks # Preg Succ Route Wgt Sex Labor Lgth Anesthesia Location Prov Complic 12/03/91 40 Yes vaginal 3628.739 g Male [facility]
== END 2025-06-12 18:20 | disposition home or self-care (01) ==
PROVIDERS: Emergency Provider Physician Assistant; PCP Nurse Practitioner Family
DX: K85.90 Acute pancreatitis without necrosis or infection, unspecified (principal); R11.2 Nausea with vomiting, unspecified; R19.7 Diarrhea, unspecified; R10.13 Epigastric pain; Z59.87 Material hardship due to limited financial resources, not elsewhere classified
CPT/HCPCS: 36416; 76770; 80048; 80076; 82962; 83690; 96365; 99284; 76700; 81003; 81015; 83605; 84484; 85025; J0131

== ENCOUNTER 2025-06-15 04:45 | Outpatient (CLI) | payer MEDICAID, SELFPAY ==
[2025-06-15 11:25] LABS: Abs Immature Grans 0.05 10^3/uL (0.0-0.06); HCT 40.9 % (36.0-46.0); HGB 13.9 g/dL (11.2-15.7); Immature Grans % 0.5 %; MCH 30.0 pg (27.0-33.0); MCHC 34.0 % (32.0-36.0); MCV 88 fL (80-95); MPV 9.6 fL (8.0-11.0); Platelet Count 309 10^3/uL (130-400); RBC 4.63 10^6/uL (3.93-5.22); RDW 13.3 % (11.7-14.6); RDW-SD 43.3 fL; WBC 10.63 10^3/uL (4.4-10.8)
== END 2025-06-15 04:46 | disposition home or self-care (01) ==
LOC: LBO 04:45
PROVIDERS: PCP Nurse Practitioner Family; Visit Provider Obstetrics & Gynecology
DX: Z01.818 Encounter for other preprocedural examination (principal)
CPT/HCPCS: 36415; 86850; 86900; 86901; 86920; 85025; 86870; 86902

== ENCOUNTER 2025-06-17 06:10 | Day surgery (SDC) | payer MEDICAID, SELFPAY ==
[2025-06-17 06:27] VITALS: BP 145/78; PULSE 89; RESP 17; TEMP 36.8; O2SAT 98
--- NOTE | 2025-06-17 07:04 | W.ANESPRE ---
General Info Date of Service Date Performed: 06/17/25 Height: 5 ft 7 in Weight: 86.1 kg Body Mass Index (BMI): 29.7 Surgical Procedure: Operation Date: 06/17/25 07:40 Proposed Procedure Side Surgeon p Dilation & Curettage with Hysteroscopy Rocío Zamora DO Meds Allergies and Home Medications Allergies Allergy/AdvReac Type Severity Reaction Status Date / Time sitagliptin (From Januvia) Allergy Intermediate Itching Verified 06/17/25 06:39 empagliflozin (From AdvReac Intermediate Other (See Verified 06/17/25 06:39 Jardiance) Comment) Home Medication ?Medication ?Instructions ?Recorded blood-glucose meter #1 ea 11/15/17 lancets 28 gauge #150 ea 11/15/17 calcium 500 mg (as 1 tab PO DAILY 01/24/20 carbonate)-vitamin D3 10 mcg (400 unit) tablet (Calcium 500 With D) cholecalciferol (vitamin D3) 25 1,000 unit PO DAILY 01/24/20 mcg (1,000 unit) capsule (Vitamin D3) blood sugar diagnostic #360 strips 07/22/21 ixekizumab 80 mg/mL subcutaneous 80 mg subcut Q4W 06/02/24 auto-injector (Taltz Autoinjector) blood sugar diagnostic (OneTouch #100 ea 07/21/24 Ultra Test strips) metformin 1,000 mg tablet 1,000 mg PO BID #180 tab-caps 07/21/24 insulin glargine 100 unit/mL (3 See Rx Instructions subcut BID #90 08/13/24 mL) subcutaneous pen (Lantus mL Solostar U-100 Insulin) pen needle, diabetic 32 gauge x #1,200 ea 01/29/25 (Unifine Pentips) pravastatin 40 mg tablet 40 mg PO DAILY #90 tabs 03/09/25 albuterol sulfate 90 mcg/actuation 2 puff inhalation Q6H PRN 05/04/25 aerosol inhaler shortness of breath or wheezing #8.5 grams omega-3 fatty acids 1,000 mg 1,000 mg PO DAILY 05/04/25 capsule tramadol 50 mg tablet 50 mg PO BID PRN 06/15/25 tramadol 50 mg tablet 100 mg (2 x 50 mg) PO BID PRN pain 06/15/25 #14 tabs Current Visit Medications: Current Medications Generic Name Dose Route Start Last Admin Trade Name Freq PRN Reason Stop Dose Admin Ringer's Solution 1,000 mls @ 125 mls/hr 06/17/25 06:00 IV 06/17/25 23:59 INFUSION [facility] IV Miscellaneous Supplies 1 each 06/17/25 06:00 Iv Access IV 06/17/25 23:59 DIRECTED MARIANNE Sodium Chloride 0 ml 06/17/25 06:00 Normal Saline Flush 10 Ml Syr IV 06/17/25 23:59 PRN PRN Sodium Chloride 0 ml 06/17/25 06:00 Normal Saline 10 Ml Vial IJ 06/17/25 23:59 DIRECTED PRN Sterile Water 0 ml 06/17/25 06:00 Water,Injection,Sterile 10 Ml Vial IJ 06/17/25 23:59 DIRECTED PRN PFSH Active Problems Active Problems: Problem Status Onset Code Pancreatitis Chronic K85.90 Thickened endometrium Acute R93.89 Pelvic pain Acute R10.2 Overweight (BMI 25.0-29.9) Acute E66.3 Dysuria Acute R30.0 Urinary urgency Acute R39.15 Superior labrum ctrmhpzk-pk-bcsrwopvb (SLAP) tear of right shoulder Acute S43.431A Tendinopathy of right biceps tendon Acute M67.921 Degenerative joint disease of acromioclavicular joint Acute M19.019 Diabetes mellitus type 2, insulin dependent Acute E11.9, Z79.4 Chronic right shoulder pain Acute M25.511, G89.29 Fatigue Acute R53.83 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 Kidney stone Chronic N20.0 Hyperlipidemia Acute 01/27/09 E78.5 Psoriasis Acute 01/07/15 L40.9 Medical History Medical History Single nabothian cyst (03/12/17) Menorrhagia with irregular cycle (10/11/17) failed Mirena IUD failing DPMA s/p 3 or4 injections s/p endometrial ablation Acute pancreatitis 12/2021-elevated lipase, exam consistent with pancreatitis, normal CT, idiopathic Tachycardia Psoriasis Diabetes Dysmenorrhea Surgical History Surgical History History of endometrial ablation S/P endometrial ablation [place]ce[place]07/1998[place] [facility] Smoking/Tobacco Use Status: Current every day Tobacco Type: cigarettes Passive smoking exposure: Yes Second hand exposure: Yes Alcohol Alcohol Intake: current Alcohol intake frequency: holidays/special occasions only Alcohol type: other Substance Use Substance use: Never Substance use type: does not use Details: cigarettes today Prental History History 1 Para 1 Hx # Term Pregnancies 1 Multiple births Hx # Pregnancies Ectopic pregnancies AB induced Hx Number of Living Children 1 AB spontaneous Past Pregnancies Del. Date GA/Weeks # Preg Succ Route Wgt Sex Labor Lgth Anesthesia Location [facility] 12/03/91 40 Yes vaginal 3628.739 g Male [facility] Vital Signs and Lab Results Vital Signs Most Recent Vital Signs in EMR: Most Recent Vital Signs Temp Pulse Resp BP Pulse Ox 36.8 C 89 17 145/78 H 98 06/17/25 06:27 06/17/25 06:27 06/17/25 06:27 06/17/25 06:27 06/17/25 06:27 Point of Care Results Point of Care Results: Finger Stick Blood Glucose 130 06/17/25 06:32 Lab Results Blood Type / Crossmatch: Antibody Screen POSITIVE 06/15/25 Complete Blood Count: WBC, (4.4-10.8) 10.63 10^3/uL 06/15/25, 11:16 RBC, (3.93-5.22) 4.63 10^6/uL 06/15/25, 11:16 Hgb, (11.2-15.7) 13.9 g/dL 06/15/25, 11:16 Hct, (36.0-46.0) 40.9 % 06/15/25, 11:16 Plt Count, (130-400) 309 10^3/uL 06/15/25, 11:16 VBG Lactate, (<or=2.0) 1.9 mmol/L 06/12/25, 15:34 Complete Metabolic Panel: Sodium, (136-145) 135 mmol/L L 06/12/25, 15:34 Potassium, (3.5-5.1) 4.0 mmol/L 06/12/25, 15:34 Chloride, (98-107) 100 mmol/L 06/12/25, 15:34 Carbon Dioxide, (21.0-32.0) 23.5 mmol/L 06/12/25, 15:34 BUN, (7-18) 19 mg/dL H 06/12/25, 15:34 Creatinine, (0.55-1.02) 0.8 mg/dL 06/12/25, 15:34 Est GFR (CKD-EPI 2020), (mL/min/1.73m2) 88.60 06/12/25, 15:34 Calcium, (8.5-10.1) 9.6 mg/dL 06/12/25, 15:34 Albumin, (3.4-5.0) 3.8 g/dL 06/12/25, 15:34 Glucose, (74-106) 357 mg/dL H 06/12/25, 15:34 Hemoglobin A1c, (4.5-5.7) 8.9 % H 06/15/25, 16:55 Liver Function Panel: ALT, (14-59) 27 U/L 06/12/25, 15:34 AST, (15-37) 13 U/L L 06/12/25, 15:34 Cardiac Panel: Troponin I, (<or=51) 7 ng/L 06/12/25 Pancreas Panel: Lipase, (<78) 104 U/L H 06/12/25, 15:34 Anesthesia Assessment and Plan Anesthesia History Personal History: No History of Anesthesia Complications Family History: No Family History of Anesthesia Complications Exercise Tolerance Exercise Tolerance: Metabolic Equivalents>4 Cardiac & Pulmonary Exam Cardiac Exam: Normal S1/S2 Heart Sounds Pulmonary Exam: Clear Bilateral Breath Sounds Implantable Cardiac Device Does patient have a Pacemaker or an ICD?: No Airway Exam Known Difficult Airway: No Mallampati Class: 2 Mouth Opening: Normal (> 3cm) Thyromental Distance: Greater than 3 cm Neck Range of Motion: Full ROM Neck Circumference: Normal Teeth Condition: Generalized Poor Dentition (Lower) and Edentulous (Upper) ASA Classification ASA Score: ASA 3 Emergency Case?: No NPO Status NPO Status: NPO Clears >2 hours, Solids >8 hours Status Status: Not Relevant due to Medical History Anesthesia Plan Resuscitation Status: Full Code Anesthesia Technique: General Anesthesia Airway Planned: Natural Airway Monitors Used: Standard Monitors and SedLine
[2025-06-17] MEDS: Lactated Ringers 1,000 ML 125 ML IV (07:25)
[2025-06-17 07:26] VITALS: BMI 29.7
--- NOTE | 2025-06-17 07:40 | W.ANESVAS ---
Peripheral IV Placement Date Performed: 06/17/25 Procedure Time: 07:00 Requesting Provider: Rocío Zamora Procedure Location: Day Surgery Unit Sedation Given (Indicate Dose Given): No Sedation given Patient Mental Status: Awake Laterality: Right Insertion Site: Antecubital Size & Type: 20 ga. Dressing: Tegaderm Applied Ultrasound: Sterile probe cover and gel used Ultrasound Image Saved?: No Number of Attempts (See previous attempts in note section): 1 Procedure Tolerated: No Complications Procedure Outcome: Successful Performed By: River Manning
--- NOTE | 2025-06-17 07:59 | ENDO_PTH ---
PATIENT: Cristina Guajardo LOC: [facility] U#:[id number] AGE/SX: 54/F ROOM: RE06/17/[address]: Rocío Zamora DO : 1970 BED: DIS: 06/17/2025 SPEC #: [id number] RECD: 06/17/25 11:53 STATUS: MIGDALIA RE #: [id number] DANIEL: 06/17/25 07:[address]: Rocío Zamora DEPT: Surgical Specimen RECD BY: Katharine Villanueva ENTERED: 06/17/25 11:54 SP TYPE: Endo OTHR DR: John Paul Chavez, LINDSAY Tissues: 1 - ENDOCERVICAL BX/CURRETTE 2 - ENDOMETRIUM BX/CURRETTE Procedures: GROSS AND MICRO LEVEL 4 Comments: [id number]
[2025-06-17 08:15] VITALS: BP 147/86; PULSE 76; RESP 14; TEMP 36.5; O2SAT 93
--- NOTE | 2025-06-17 08:19 | W.PM.OP ---
Operative Note Operative Note PRE-OP DIAGNOSIS: Thickened endometrium, prior endometrial ablation POST-OP DIAGNOSIS: same Intrauterine synechiae PROCEDURE: Hysteroscopy with dilation and curettage SURGEON: Rocío Zamora ANESTHESIA TYPE: General:No Airway Refer to Anesthesia Record ESTIMATED BLOOD LOSS: 5 PATHOLOGY: other (1. Endocervical curettage 2. Endometrial curettage) COMPLICATIONS: None Patient was transported to: same day Patient's condition: stable Indications: 5 mm endometrial stripe. History of endometrial ablation Findings: Normal-appearing cervix and endocervical canal. Significant intrauterine synechiae. No discrete polyps, masses, or lesions. Scant tissue for endocervical and endometrial curettage Procedure Description: After full informed consent was obtained, patient was taken the operating suite with an IV running. She is placed in the dorsal supine position. She was then placed in modified dorsolithotomy position with yellowfin stirrups and pneumatic compression stockings for DVT prophylaxis. No antibiotics were required. General anesthesia was administered. Patient was prepped and draped in the usual sterile fashion. A timeout was held. Exam under anesthesia revealed a uterus that was midline and mobile without evidence of adnexal masses. A speculum was then inserted into the vaginal vault and the single-tooth tenaculum used to grasp the anterior lip of the cervix. In a systematic fashion, the cervical os was dilated to the point that a 4 mm hysteroscope could be passed without difficulty. With instillation of normal saline, hysteroscopic evaluation of the endocervix and cervical canal along with the endometrium was performed. Cervix appeared smooth and regular. The endometrium had significant synechiae with difficulty in visualization of the right tubal ostia, visualization of the left tubal ostia. No discrete masses or lesions were noted. At this point, the hysteroscope portion of the procedure was terminated with fluid deficit of 50 cc. Endocervical curettage was performed with a Kevorkian curette, followed by endometrial curettage with a banjo curette. Both specimens were scant in nature. Upon completion of the fractional dilation and curettage, single-tooth tenaculum was removed from the anterior lip of the cervix. Puncture site was noted to be hemostatic and the speculum was removed. The patient was returned to the dorsal supine position and awoke from anesthesia without difficulties. She was taken to the same-day surgical area in stable condition. EBL: 5 mL Fluids: Crystalloid per anesthesia +50 cc of normal saline deficit at hysteroscope Pathology: 1. Endocervical curettage 2. Endometrial curettage Complications: None apparent Findings as above. Date of Procedure: 06/17/25
--- NOTE | 2025-06-17 08:30 | W.ANESPOSTOP ---
Postoperative Evaluation Date, Time and Location Date Performed: 06/17/25 Time Performed: 08:16 Patient Location: Day Surgery Unit Vital Signs Most Recent Imported Vital Signs: Most Recent Vital Signs Temp Pulse Resp BP Pulse Ox 36.5 C 76 14 147/86 H 93 06/17/25 08:15 06/17/25 08:15 06/17/25 08:15 06/17/25 08:15 06/17/25 08:15 Pain Score Most Recent Pain Score: Most Recent Pain Score Pain Level 2 06/17/25 08:15 Assessment Mental Status: Arousable with meaningful communication Airway and Respiratory Function: Patent airway with normal (patient baseline) respiratory exam Cardiovascular Function: Hemodynamically Stable Hydration Status: Adequately Hydrated Nausea & Vomiting: No Nausea or Vomiting Pain: Pain is tolerable per patient Peripheral Nerve Block: Patient did not receive a nerve block
[2025-06-17 08:55] VITALS: BP 140/82; PULSE 73; RESP 15; TEMP 36; O2SAT 99
== END 2025-06-17 09:34 | disposition home or self-care (01) ==
PROVIDERS: PCP Nurse Practitioner Family; Visit Provider Obstetrics & Gynecology
PROC: 0UDB8ZZ Extraction of Endometrium, Via Natural or Artificial Opening Endoscopic (ICD-10-PCS; CPT 58558; principal; 2025-06-17 07:30)
DX: R93.89 Abnormal findings on diagnostic imaging of other specified body structures (principal); N85.6 Intrauterine synechiae
CPT/HCPCS: 58558; 88305; J1100; J2003; J2250; J2405; J2704; J3010

== ENCOUNTER 2025-06-24 13:34 | Outpatient (CLI) | payer MEDICAID, SELFPAY ==
--- NOTE | 2025-06-24 05:26 | DI.NM_ITS ---
Exam(s) NM HEPATOBILIARY CCK GRP EXAM: NM HEPATOBILIARY CCK GRP CLINICAL HISTORY: evaluate GB function K85.90 PANCREATITIS. TECHNIQUE: Injected dose: 5 mCi Tc-99 mebrofenin Initial dynamic images: 60 minutes Post-Gallbladder fillin.4 mcg CCK intravenously over a 30min infusion. Additional images: 30 minute dynamic during CCK administration. COMPARISON: US US ABDOMEN RENAL from 06/12/2025 FINDINGS: Normal hepatic transit time. Prompt excretion into the small bowel. Prompt excretion into the gallbladder. Gallbladder ejection fraction: 46 percent. (Normal gallbladder ejection fraction is greater than 40 percent.) IMPRESSION: 1. Gallbladder ejection fraction is at the lower range of normal at 46 percent. [facility] guidelines: Gallbladder visualization should be present by 3 hours. Delayed ulubxrx-tg-xmnrg transit beyond 60 min raises the suspicion for partial common bile duct (CBD) obstruction. Gallbladder ejection fraction <35% has a good correlation with acalculous disease (i.e., chronic acalculous cholecystitis, cystic duct syndrome, sphincter of Oddi disease).
[2025-06-24] MEDS: Sincalide 5 MCG VIAL 1.4 MCG IJ (10:09)
[2025-06-24] MEDS: Water,Injection,Sterile 10 ML VIAL IJ (10:09)
== END 2025-06-24 13:54 ==
LOC: DI 13:34
PROVIDERS: PCP Nurse Practitioner Family; Visit Provider Family Medicine
DX: K85.90 Acute pancreatitis without necrosis or infection, unspecified (principal); R93.2 Abnormal findings on diagnostic imaging of liver and biliary tract
CPT/HCPCS: 78227; J2805

== ENCOUNTER 2025-10-12 13:48 | Outpatient (REF) | payer MEDICAID, SELFPAY | END 2025-10-12 13:49 | disposition home or self-care (01) | LOC: LBN 13:48 | PROVIDERS: PCP Nurse Practitioner Family; Visit Provider Nurse Practitioner Family | DX: L98.9 Disorder of the skin and subcutaneous tissue, unspecified (principal) | CPT/HCPCS: 87070; 87205 ==